=== PATIENT | female | born 1990 | race Caucasian/White ===

== ENCOUNTER → 2022-06-29 15:19 | Outpatient (CLI) | payer BC, SELFPAY ==
--- NOTE | ~2022-06-29 | US_ITS ---
US OB follow up DATE: 06/29/2022 15:50 INDICATION: Size greater than dates TECHNIQUE: Real-time imaging and Doppler analysis COMPARISON: None FINDINGS: . Live single intrauterine gestation, fetus in vertex presentation. heart rate of 124 bpm. Anterior placenta. Subjectively normal amount of amniotic fluid. Amniotic fluid index measures 16.70 cm, within normal limits. Biparietal diameter 7.89 cm; 31 weeks 5 days Head circumference 29.01 cm; 32 weeks 0 days Abdominal circumference 26.34 cm; 30 weeks 3 days Femur length 5.67 cm; 29 weeks 5 days Composite age by Hadlock formula is 31 weeks +/- 2 weeks 1 day with NING of 08/31/2022, compared to 08/17 by LMP. Estimated weight is 1581 +/- 237 g. Estimated weight GP: 43.8% Femur length/BPD 71.86, within normal range of 71.0-87.0 Head circumference/abdominal circumference 1.10, within normal range of 0.9, 671.17 Femur length/abdominal circumference 21.53, within normal range of 20.00-24.00 Femur length/head circumference 19.54, within normal range of 19.30-21.30 IMPRESSION: Vertex presentation Amniotic fluid index measures 16.70 cm, within normal range Estimated weight is 1581 +/- 237 g Reviewed, dictated and finalized at [facility]. Reviewed, dictated and finalized at location [facility]. 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
== END ==
PROVIDERS: PCP Obstetrics & Gynecology Gynecology; Visit Provider Obstetrics & Gynecology Gynecology
DX: O36.63X0 Maternal care for excessive fetal growth, third trimester, not applicable or unspecified (principal); Z3A.00 Weeks of gestation of pregnancy not specified
CPT/HCPCS: 76816

== ENCOUNTER 2022-08-27 14:40 | Outpatient (RCR) | payer BC, SELFPAY ==
--- NOTE | 2022-07-28 15:18 | PC.NURSE ---
Called Dr. Benjamin with ultrasound report. 1 variable deceleration noted at beginning of tracing with none since. December D/C home.
[2022-07-31 17:17] VITALS: BP 114/65; PULSE 79
[2022-08-05 15:15] VITALS: BP 113/61; PULSE 88
[2022-08-18 15:49] VITALS: BP 122/72; PULSE 74
[2022-08-20 14:56] VITALS: BP 119/66; PULSE 93
[2022-08-24 22:23] VITALS: BP 135/71; PULSE 73
--- NOTE | ~2022-08-27 | US_ITS ---
EXAMINATION: US OB follow up w BPP DATE: 07/28/2022 14:49 INDICATION: Variable decelerations. Third trimester. TECHNIQUE: Real-time pelvic ultrasound was performed. COMPARISON: Ultrasound 06/29/2022 FINDINGS: There is a single living fetus in vertex presentation. The placenta is anterior. heart rate is 132 beats per minute (bpm). The amniotic fluid index is 12.1 cm . The following biometric data were obtained: Biparietal diameter (BPD): 8.8 cm; head circumference (HC): 31.5 cm; abdominal circumference (AC): 32 .4 cm; femur length (FL): 6.9 cm. These measurements are concordant. Estimated weight is 2795 g +/- 419 g, which correlates with the 85th percentile when 08/27/22 is used as estimated date of delivery. As single measurements, these parameters are each equal to the following estimated gestational ages: BPD: 35 weeks 5 days. HC: 35 weeks 3 days. AC: 36 weeks 2 days. FL: 35 weeks 3 days. estimated gestational age based solely on measurements from this exam is 35 weeks 5 days +/- 2 weeks 4 days. Biophysical profile performed by the technologist: breathing (30 sec sustained breathing in 30 minutes): 2 out of 2 movement (3 gross body movements in 30 minutes): 2 out of 2 tone (one episode of qtylqgx-vayzbydtz-crmwpyw limb movement): 2 out of 2 Amniotic fluid pocket (2 cm): 2 out of 2 Total score: 8 out of 8 IMPRESSION: 1. Single living fetus in vertex presentation. 2. Estimated weight is 2795 g +/- 419 g, which correlates with the 85th percentile when 3 is used as estimated date of delivery. 3. Biophysical profile 8 out of 8. Reviewed, dictated and finalized at location A. 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 Single living fetus in vertex presentation. 2. Estimated weight is 2795 g +/- 419 g, which correlates with the 85th percentile when 08/27/22 is used as estimated date of delivery. 3. Biophysical profile 8 out of 8.
[2022-08-27 15:23] VITALS: BP 117/67; PULSE 94
== END 2022-09-12 07:45 | disposition home or self-care (01) ==
LOC: ANHOBOP 14:40
PROVIDERS: Visit Provider Obstetrics & Gynecology Gynecology
DX: O26.893 Other specified pregnancy related conditions, third trimester (principal); O98.513 Other viral diseases complicating pregnancy, third trimester; U07.1 COVID-19; Z3A.34 34 weeks gestation of pregnancy; Z3A.35 35 weeks gestation of pregnancy; Z3A.37 37 weeks gestation of pregnancy; Z3A.38 38 weeks gestation of pregnancy
CPT/HCPCS: 59025; 76816; 76819

== ENCOUNTER 2022-08-30 16:01 | Inpatient (IN) | payer BC, SELFPAY ==
[2022-08-30 16:37] VITALS: BP 133/69; PULSE 87
[2022-08-30 16:57] LABS: Basophils Percent Auto 0.4 % (0.2-1.2); Eosinophils Absolute Auto 0.1 K/mm3 (0-0.3); Eosinophils Percent Auto 0.8 % (0-4.4); Hematocrit 35.9 % (37.0-47.0); Hemoglobin 11.9 g/dL (12.0-15.0); Immature Granulocyte Absolute 0.13 K/mm3 (0.00-0.031); Immature Granulocyte Percent A 1.3 % (0-0.5); Lymphocytes Absolute Auto 1.64 K/mm3 (0.9-3.2); Mean Corpuscular HGB Conc 33.1 g/dl (32-36); Mean Corpuscular Hemoglobin 31.2 pg (26-34); Mean Corpuscular Volume 94.2 fl (80-100); Mean Platelet Volume 9.7 fl (7.4-10.4); Monocytes Absolute Auto 0.7 K/mm3 (0.1-0.6); Monocytes Percent Auto 7.1 % (2.6-8.5); Neutrophils Absolute Auto 7.1 K/mm3 (1.3-6.7); Neutrophils Percent Auto 73.4 % (45.5-73.1); Platelet Count Result 233 k/mm3 (150-375); Red Blood Count 3.81 M/mm3 (4.2-5.4); White Blood Count 9.7 K/mm3 (4.5-10.0)
[2022-08-30 17:07] VITALS: BP 124/75; PULSE 88; TEMP 37.2
[2022-08-30 17:10] VITALS: TEMP 37.2; BMI 35.2
--- NOTE | 2022-08-30 17:14 | LDADM ---
This patient, Leida El, was admitted to Labor/Delivery/Recovery 103 on 08/30/22 at 16:01. Plans for labor, pain management and were discussed with patient. Patient/family oriented to hospital policies and general routines including ID bracelet, bed and alarms, visiting hours, pain management, procedures, bathroom and other care routines, personal items, smoking policy, room service/diet and guest tray routines, security routines, and visiting hours. Patient/Family are encouraged to report perceived risks to care and to ask questions if they do not understand what they are told or what they should do. See OBIX for further documentation.
[2022-08-30 17:15] VITALS: BP 127/74; PULSE 82
[2022-08-30 17:30] VITALS: BP 130/88; PULSE 81
[2022-08-30] MEDS: DINOPROSTONE 10 MG VAG INSERT VAGINAL (17:41)
--- NOTE | 2022-08-30 17:57 | WPDOBADMIT ---
Obstetrics - Admit Note Admission Note: record reviewed. No pertinent additions to the history and/or any subsequent changes in the physical findings that are not consistent with the expected course of the were found. Additions to the history and/or subsequent changes in the physical findings follow. None.
[2022-08-31] VITALS (10 sets, daily range): BP systolic 119–124; BP diastolic 71–81; PULSE 71–88; TEMP 36.1–36.6
[2022-08-31] MEDS: miSOPROStol 25 MCG TABLET VAGINAL ×2 (07:16→11:24)
--- NOTE | 2022-08-31 07:38 | PM.OBPNLAB ---
Pain Control Date/time seen: 08/31/22 07:38 Pain control: tolerating well Pelvic Exam Comments: Closed per recent RN exam Contractions Monitor mode: External Contraction frequency: 3 Contraction pattern: Regular Contraction phase: Contraction Contraction intensity: Mild Status status: Category l Assessment and Plan Assessment: induction ongoing Comments: CNM at bedside. Discussed plan of care. Discussed plan of care with patient and her partner. Discussed Cervidil and Cytotec process. Discussed expectations from this point on. Plan to reassess cervix in 4 hours. If cervix remains firm and patient not having regular painful contractions, would consider a 2nd Cytotec. Discussed options for Yeh balloon placement including risks and benefits. Discussed amniotomy risks and benefits at some point. Also discussed options of discharge home with plan for readmission at a later point in time if her cervix makes no change. All questions answered.
--- NOTE | 2022-08-31 16:41 | WPDANESEPP ---
Anes - Eval Pre Procedure Procedure: Labor epidural Date/Time: 08/31/22 16:41 Surgeon: Sourav Preop Diagnosis: Abd pain with contractions Pre Op Diagnosis: IOL Patient Data Age: 32 Gender: F Height: 1.63 m Weight: 93 kg Last Vital Signs Temp 98 F 08/31/22 15:26 Pulse 81 08/31/22 16:20 BP 123/73 08/31/22 16:20 O2 Del Method Room Air 08/30/22 17:10 Allergies Allergy/AdvReac Type Severity Reaction Status Date / Time No Known Allergies Allergy Verified 08/05/22 15:09 Home Medications Medication Instructions Recorded Confirmed Type aspirin 81 mg tablet,delayed 81 mg PO DAILY 08/05/22 08/20/22 History release (Lanny Low Dose Aspirin) cholecalciferol (vitamin D3) 100 100 mcg PO DAILY 08/05/22 08/20/22 History mcg (4,000 unit) capsule levothyroxine 50 mcg tablet 50 mcg PO DAILY 08/05/22 08/30/22 History prenat.vits,lu,bwm-aqle-raijo 1 tablet PO DAILY 08/05/22 08/20/22 History Laboratory Tests 08/30/22 08/30/22 08/30/22 16:34 16:34 16:34 WBC 9.7 K/mm3 K/mm3 (4.5-10.0) RBC 3.81 M/mm3 L M/mm3 (4.2-5.4) Hgb 11.9 g/dL L g/dL (12.0-15.0) Hct 35.9 % L % (37.0-47.0) MCV 94.2 fl fl (80-100) MCH 31.2 pg pg (26-34) MCHC 33.1 g/dl g/dl (32-36) RDW 14.0 % % (11.5-14.5) Plt Count 233 k/mm3 k/mm3 (150-375) MPV 9.7 fl fl (7.4-10.4) Immature Gran % (Auto) 1.3 % H % (0-0.5) Neut % (Auto) 73.4 % H % (45.5-73.1) Lymph % (Auto) 17.0 % L % (18.3-44.2) [place] % (Auto) 7.1 % % (2.6-8.5) Eos % (Auto) 0.8 % % (0-4.4) Baso % (Auto) 0.4 % % (0.2-1.2) Lymph # (Auto) 1.64 K/mm3 K/mm3 (0.9-3.2) [place] # (Auto) 0.7 K/mm3 H K/mm3 (0.1-0.6) Eos # (Auto) 0.1 K/mm3 K/mm3 (0-0.3) Baso # (Auto) 0.0 K/mm3 K/mm3 (0.0-0.1) Abs Immat Gran (auto) 0.13 K/mm3 H K/mm3 (0.00-0.031) Absolute Neuts (auto) 7.1 K/mm3 H K/mm3 (1.3-6.7) Absolute Nucleated RBC 0.0 K/mm3 K/mm3 (0.0-0.012) Nucleated RBC % 0.0 % % (0.0-0.2) RPR Pending Blood Type O Positive Antibody Screen Negative Patient hx anesthesia problems: none Family hx anesthesia problems: none Results Review: All pre-operative results and documents have been reviewed as part of the pre-operative evaluation. [facility] Past Medical History Medical History Hypothyroidism Obesity PCOS (polycystic ovarian syndrome) and not yet delivered Scoliosis Family History Family History Other No pertinent family history Social History Social History Smoking status: Never smoker Second hand tobacco smoke exposure: No Substance use: never Lack of Transportation: No Lack of Food: Never True Current Housing: I Have Housing Concerned About Future Housing: No Difficulty Paying Gas/Electric Bills: No Difficulty Paying for Meds: No Currently Unemployed: No Education: Bachelor's Degree Difficulty w/ Childcare or Family Care: No Spiritual care concerns: No Exam Day of Procedure 08/31/22 16:41 Patient weight: obese Airway: Mallampati scale class II
[2022-08-31 16:55] LABS: Rapid Plasma Reagin Non-Reactive (NonReactive)
--- NOTE | 2022-08-31 17:48 | PM.OBPNLAB ---
Pain Control Date/time seen: 08/31/22 17:48 Pain control: tolerating well Comments: Desires discharge home. Contractions Monitor mode: External Contraction pattern: Regular Contraction phase: Contraction Contraction intensity: Mild Status status: Category l Assessment and Plan Comments: CNM At bedside. Patient feeling occasional cramping. Denies vaginal bleeding or rupture of membranes. Reports good movement. heart rate tracing category 1. Patient desires discharge home and would like to return in a few days for induction. Discussed risks and benefits. Discussed risk of stillbirth at this gestation. Discuss possibility/risk of spontaneous labor, rupture of membranes. Labor precautions reviewed. movement precautions reviewed. Plan to discharge patient home this evening with plans for readmission on the .
--- NOTE | 2022-08-31 17:50 | PM.OBPNLAB ---
Pain Control Date/time seen: 08/31/22 1500 Pain control: tolerating well Comments: feeling occasional cramping Pelvic Exam Dilation (cm): 1 Effacement (%): 50 station: -3 Amniotic membrane status: Intact Comments: Somewhat ballotable. Contractions Monitor mode: External Contraction frequency: 3 Contraction pattern: Regular Contraction phase: Contraction Contraction intensity: Mild Status status: Category l Assessment and Plan Plan: continuous present management Comments: Discussed plan of care. Discussed contraction pattern and heart rate tracing. Would defer amniotomy at this time due to head being somewhat ballotable. Given contraction pattern and consistency of cervix would recommend a Yeh balloon placement. Discussed options for Pitocin augmentation with or without the Yeh balloon. Also discussed possibility of discharge home for return at a later time given no medical complications during . Patient will consider these options. Spouse present and supportive.
--- NOTE | 2022-09-09 09:13 | PM.OBTRLD ---
OB - Triage/Final Diagnosis Visit Information Date of evaluation: 08/31/22 Reason for evaluation: other Comments/Additional reasons for admission: I have assessed the risk for this patient, Leida El, and determined that she would benefit from observation care. She is being discharged home after a failed attempt at induction of labor. Evaluation Laboratory results: Laboratory Tests 08/30/22 08/30/22 08/30/22 16:34 16:34 16:34 WBC 9.7 RBC 3.81 L Hgb 11.9 L Hct 35.9 L MCV 94.2 MCH 31.2 MCHC 33.1 RDW 14.0 Plt Count 233 MPV 9.7 Immature Gran % (Auto) 1.3 H Neut % (Auto) 73.4 H Lymph % (Auto) 17.0 L Victoria % (Auto) 7.1 Eos % (Auto) 0.8 Baso % (Auto) 0.4 Lymph # (Auto) 1.64 Victoria # (Auto) 0.7 H Eos # (Auto) 0.1 Baso # (Auto) 0.0 Abs Immat Gran (auto) 0.13 H Absolute Neuts (auto) 7.1 H Absolute Nucleated RBC 0.0 Nucleated RBC % 0.0 RPR Non-reactive Blood Type O Positive Antibody Screen Negative
== END 2022-08-31 18:10 | disposition home or self-care (01) | DRG 833 ==
PROVIDERS: Admitting Provider Advanced Practice Midwife; Visit Provider Advanced Practice Midwife
DX: O99.283 Endocrine, nutritional and metabolic diseases complicating pregnancy, third trimester (principal); O99.213 Obesity complicating pregnancy, third trimester; E03.9 Hypothyroidism, unspecified; Z3A.39 39 weeks gestation of pregnancy
CPT/HCPCS: 36415; 85025; 86592; 86850; 86900; 86901; A9270

== ENCOUNTER 2022-09-03 16:04 | Inpatient (IN) | payer BC, SELFPAY ==
[2022-09-03] VITALS (16 sets, daily range): BP systolic 117–135; BP diastolic 71–88; PULSE 74–110; RESP 16–18; TEMP 36.8–36.9
--- NOTE | 2022-09-03 16:57 | LDADM ---
This patient, Leida El, was admitted to Labor/Delivery/Recovery 107 on 09/03/22 at 16:04. Plans for labor, pain management and were discussed with patient. Patient/family oriented to hospital policies and general routines including ID bracelet, bed and alarms, visiting hours, pain management, procedures, bathroom and other care routines, personal items, smoking policy, room service/diet and guest tray routines, security routines, and visiting hours. Patient/Family are encouraged to report perceived risks to care and to ask questions if they do not understand what they are told or what they should do. See OBIX for further documentation.
[2022-09-03 16:59] LABS: Basophils Percent Auto 0.4 % (0.2-1.2); Eosinophils Absolute Auto 0.1 K/mm3 (0-0.3); Eosinophils Percent Auto 1.1 % (0-4.4); Hematocrit 36.1 % (37.0-47.0); Immature Granulocyte Absolute 0.16 K/mm3 (0.00-0.031); Immature Granulocyte Percent A 1.6 % (0-0.5); Lymphocytes Absolute Auto 1.81 K/mm3 (0.9-3.2); Lymphocytes Percent Auto 18.2 % (18.3-44.2); Mean Corpuscular HGB Conc 33.2 g/dl (32-36); Mean Corpuscular Hemoglobin 31.2 pg (26-34); Mean Corpuscular Volume 93.8 fl (80-100); Monocytes Absolute Auto 0.8 K/mm3 (0.1-0.6); Monocytes Percent Auto 7.6 % (2.6-8.5); Neutrophils Absolute Auto 7.1 K/mm3 (1.3-6.7); Neutrophils Percent Auto 71.1 % (45.5-73.1); Platelet Count Result 243 k/mm3 (150-375); Red Blood Count 3.85 M/mm3 (4.2-5.4); Red Cell Distribution Width 14.1 % (11.5-14.5)
[2022-09-03] MEDS: miSOPROStol 25 MCG TABLET XX ×2 (17:35→22:55)
--- NOTE | 2022-09-03 21:23 | WPDANESEPP ---
Anes - Eval Pre Procedure Procedure: Labor epidural Date/Time: 09/03/22 21:23 Surgeon: Sourav Preop Diagnosis: Abd pain with contractions Pre Op Diagnosis: IOL Patient Data Age: 32 Gender: F Height: Weight: Last Vital Signs Temp 98.5 F 09/03/22 16:45 Pulse 83 09/03/22 21:00 BP 117/73 09/03/22 21:00 Allergies Allergy/AdvReac Type Severity Reaction Status Date / Time No Known Allergies Allergy Verified 08/05/22 15:09 Home Medications Medication Instructions Recorded Confirmed Type aspirin 81 mg tablet,delayed 81 mg PO DAILY 08/05/22 09/03/22 History release (Lanny Low Dose Aspirin) cholecalciferol (vitamin D3) 100 100 mcg PO DAILY 08/05/22 09/03/22 History mcg (4,000 unit) capsule levothyroxine 50 mcg tablet 50 mcg PO DAILY 08/05/22 09/03/22 History prenat.vits,lu,qll-sjgz-eqbkx 1 tablet PO DAILY 08/05/22 09/03/22 History Laboratory Tests 09/03/22 09/03/22 09/03/22 16:39 16:39 16:39 WBC 10.0 K/mm3 K/mm3 (4.5-10.0) RBC 3.85 M/mm3 L M/mm3 (4.2-5.4) Hgb 12.0 g/dL g/dL (12.0-15.0) Hct 36.1 % L % (37.0-47.0) MCV 93.8 fl fl (80-100) MCH 31.2 pg pg (26-34) MCHC 33.2 g/dl g/dl (32-36) RDW 14.1 % % (11.5-14.5) Plt Count 243 k/mm3 k/mm3 (150-375) MPV 10.0 fl fl (7.4-10.4) Immature Gran % (Auto) 1.6 % H % (0-0.5) Neut % (Auto) 71.1 % % (45.5-73.1) Lymph % (Auto) 18.2 % L % (18.3-44.2) [place] % (Auto) 7.6 % % (2.6-8.5) Eos % (Auto) 1.1 % % (0-4.4) Baso % (Auto) 0.4 % % (0.2-1.2) Lymph # (Auto) 1.81 K/mm3 K/mm3 (0.9-3.2) [place] # (Auto) 0.8 K/mm3 H K/mm3 (0.1-0.6) Eos # (Auto) 0.1 K/mm3 K/mm3 (0-0.3) Baso # (Auto) 0.0 K/mm3 K/mm3 (0.0-0.1) Abs Immat Gran (auto) 0.16 K/mm3 H K/mm3 (0.00-0.031) Absolute Neuts (auto) 7.1 K/mm3 H K/mm3 (1.3-6.7) Absolute Nucleated RBC 0.0 K/mm3 K/mm3 (0.0-0.012) Nucleated RBC % 0.0 % % (0.0-0.2) RPR Pending Blood Type O Positive Antibody Screen Negative Patient hx anesthesia problems: none Family hx anesthesia problems: none Results Review: All pre-operative results and documents have been reviewed as part of the pre-operative evaluation. [facility] Past Medical History Medical History Hypothyroidism Obesity PCOS (polycystic ovarian syndrome) and not yet delivered Scoliosis Family History Family History Other No pertinent family history Social History Social History Smoking status: Never smoker Second hand tobacco smoke exposure: No Substance use: never Lack of Transportation: No Lack of Food: Never True Current Housing: I Have Housing Concerned About Future Housing: No Difficulty Paying Gas/Electric Bills: No Difficulty Paying for Meds: No Currently Unemployed: No Education: Bachelor's Degree Difficulty w/ Childcare or Family Care: No Spiritual care concerns: No Exam Day of Procedure 09/03/22 21:23 Patient weight: obese Airway: Mallampati scale class II
[2022-09-04] VITALS (241 sets, daily range): BP systolic 68–139; BP diastolic 41–96; PULSE 64–208; RESP 18; TEMP 36.4–37.2; O2SAT 96–100; BMI 35.2
[2022-09-04] MEDS: LACTATED RINGERS 1,000 ML 125 ML IV CONT ×3 (03:15→20:13)
[2022-09-04] MEDS: OXYTOCIN 30 UNITS/NS 500 ML 30 UNITS/500 ML BAG 6 UNITS IV CONT (03:15)
--- NOTE | 2022-09-04 07:20 | PM.OBPNLAB ---
Pain Control Date/time seen: 09/04/22 07:15 Pain control: tolerating well Comments: Feeling irregular cramping/ctx Pelvic Exam Dilation (cm): 2 Effacement (%): 60 station: -3 Amniotic membrane status: Intact Comments: head well applied to cervix Contractions Monitor mode: External Contraction frequency: 4 (1.5-4.5) Contraction duration: 60 (60-80) Contraction pattern: Irregular Contraction phase: Contraction Contraction intensity: Mild Status status: Category l Assessment and Plan Pitocin rate (mU/min): 8 (Decreased to 4ml/hr after AROM) Assessment: induction ongoing Comments: CNM at bedside. Discussed plan of care. Given change in exam would recommend amniotomy as next steps. Also discussed possibility of placement of intrauterine pressure catheter at some point. Patient is agreeable. Amniotomy performed and small amount of clear fluid returned. Pitocin decreased to 4 mL an hour. Will defer placement of IUPC at this time since cervical change is present. Anticipate vaginal .
--- NOTE | 2022-09-04 12:20 | PM.OBPNLAB ---
Pain Control Date/time seen: 09/04/22 12:15 Pain control: tolerating well and epidural Pelvic Exam Comments: Exam deferred at this time Contractions Monitor mode: Internal Contraction pattern: Regular Status status: Category l Assessment and Plan Assessment: induction ongoing Comments: CNM at bedside. Discussed plan of care with patient and her family. Contraction pattern appears adequate and tracing category 1. cervical exam deferred. Recommend frequent repositioning to allow for optimal descent. Anticipate vaginal
--- NOTE | 2022-09-04 12:22 | PM.OBTRLD ---
OB - Triage/Final Diagnosis Visit Information Date of evaluation: 08/31/22 Reason for evaluation: other (Lack of adequate cervical change, failed IOL. Cat 1 FHT tracing. ) Comments/Additional reasons for admission: I have assessed the risk for this patient, Leida El, and determined that she would benefit from observation care. Evaluation Laboratory results: Laboratory Tests 09/03/22 09/03/22 16:39 16:39 WBC 10.0 RBC 3.85 L Hgb 12.0 Hct 36.1 L MCV 93.8 MCH 31.2 MCHC 33.2 RDW 14.1 Plt Count 243 MPV 10.0 Immature Gran % (Auto) 1.6 H Neut % (Auto) 71.1 Lymph % (Auto) 18.2 L [place] % (Auto) 7.6 Eos % (Auto) 1.1 Baso % (Auto) 0.4 Lymph # (Auto) 1.81 [place] # (Auto) 0.8 H Eos # (Auto) 0.1 Baso # (Auto) 0.0 Abs Immat Gran (auto) 0.16 H Absolute Neuts (auto) 7.1 H Absolute Nucleated RBC 0.0 Nucleated RBC % 0.0 Blood Type O Positive Antibody Screen Negative Vital signs: Vital Signs - 24 hr 09/03/22 16:29 09/03/22 16:30 09/03/22 16:45 Temperature 98.5 F Pulse Rate 97 94 110 H Respiratory Rate Blood Pressure 128/79 130/79 135/88 Pulse Oximetry Oxygen Delivery 09/03/22 17:00 09/03/22 17:15 09/03/22 17:30 Temperature Pulse Rate 84 79 82 Respiratory Rate Blood Pressure 118/73 117/72 128/76 Pulse Oximetry Oxygen Delivery 09/03/22 18:00 09/03/22 18:30 09/03/22 19:00 Temperature 98.4 F Pulse Rate 87 74 84 Respiratory Rate 18 Blood Pressure 132/82 129/73 131/73 Pulse Oximetry Oxygen Delivery 09/03/22 19:30 09/03/22 20:00 09/03/22 20:30 Temperature Pulse Rate 80 77 78 Respiratory Rate Blood Pressure 122/71 135/79 123/73 Pulse Oximetry Oxygen Delivery 09/03/22 21:00 09/03/22 21:30 09/03/22 22:56 Temperature Pulse Rate 83 86 74 Respiratory Rate Blood Pressure 117/73 120/79 134/78 Pulse Oximetry Oxygen Delivery 09/04/22 00:03 09/04/22 00:35 09/04/22 01:00 Temperature Pulse Rate 85 72 73 Respiratory Rate Blood Pressure 121/58 L 122/73 116/74 Pulse Oximetry Oxygen Delivery 09/04/22 01:30 09/04/22 02:00 09/04/22 02:30 Temperature Pulse Rate 75 83 78 Respiratory Rate Blood Pressure 124/80 100/55 L 103/48 L Pulse Oximetry Oxygen Delivery 09/04/22 02:32 09/04/22 03:04 09/04/22 03:19 Temperature Pulse Rate 74 64 81 Respiratory Rate Blood Pressure 106/53 L 117/78 127/74 Pulse Oximetry Oxygen Delivery 09/04/22 03:30 09/04/22 03:45 09/04/22 04:00 Temperature Pulse Rate 71 69 76 Respiratory Rate Blood Pressure 127/76 119/80 122/69 Pulse Oximetry Oxygen Delivery 09/04/22 04:15 09/04/22 04:30 09/04/22 04:45 Temperature Pulse Rate 80 79 78 Respiratory Rate Blood Pressure 119/79 127/75 121/68 Pulse Oximetry Oxygen Delivery 09/04/22 05:00 09/04/22 05:15 09/04/22 05:30 Temperature Pulse Rate 76 75 74 Respiratory Rate Blood Pressure 108/53 L 105/59 L 123/75 Pulse Oximetry Oxygen Delivery 09/04/22 05:45 09/03/22 23:00 09/04/22 03:00 Temperature 98.2 F 97.5 F L Pulse Rate 90 Respiratory Rate 16 18 Blood Pressure 118/77 Pulse Oximetry Oxygen Delivery 09/04/22 06:00 09/04/22 06:15 09/04/22 06:30 Temperature Pulse Rate 91 86 79 Respiratory Rate Blood Pressure 115/70 125/78 104/49 L Pulse Oximetry Oxygen Delivery 09/04/22 06:32 09/04/22 06:45 09/04/22 07:00 Temperature Pulse Rate 80 75 77 Respiratory Rate Blood Pressure 99/52 L 97/50 L 116/74 Pulse Oximetry Oxygen Delivery 09/04/22 07:15 09/04/22 07:30 09/04/22 07:45 Temperature Pulse Rate 86 79 79 Respiratory Rate Blood Pressure 130/79 120/76 119/74 Pulse Oximetry Oxygen Delivery 09/04/22 08:00 09/04/22 08:15 09/04/22 08:30 Temperature Pulse Rate 87 76 84 Respiratory Rate Blood Pressure 121/75 119/78 120/74 Pulse Oximetry Oxy
[2022-09-04 14:20] LABS: Rapid Plasma Reagin Non-Reactive (NonReactive)
--- NOTE | 2022-09-04 17:33 | PM.OBPNLAB ---
Pain Control Date/time seen: 09/04/22 17:00 Pain control: tolerating well and epidural Pelvic Exam Dilation (cm): 4 Effacement (%): 90 station: -2 Amniotic membrane status: Intact Contractions Monitor mode: Internal Contraction frequency: 4 (1.5-6) Contraction duration: 90 (70-90) Contraction pattern: Irregular Contraction phase: Contraction Status status: Category l Assessment and Plan Assessment: active labor Plan: continuous present management Comments: CNM at bedside. Discussed plan of care. Recommend far left lateral and far right lateral positions with top leg on peanut ball to allow for rotation and descent. Anticipate vaginal .
--- NOTE | 2022-09-04 20:11 | PM.OBPNLAB ---
Pain Control Date/time seen: 09/04/221952 Pain control: tolerating well and epidural Pelvic Exam Dilation (cm): 5 Effacement (%): 90 station: -2 Amniotic membrane status: Intact Contractions Monitor mode: Internal Contraction frequency: 4 (1.5-4.5) Contraction duration: 60 (60-90) Contraction pattern: Irregular Contraction phase: Contraction Status status: Category ll Comments: Reassured by moderate variability Assessment and Plan Assessment: induction ongoing Plan: continuous present management Comments: Pt assisted to hands and knees. Recommend frequent repositioning.
[2022-09-04] MEDS: CALCIUM CARBONATE (TUMS) 500 MG (200 MG ELEMENTAL) 400 MG PO (22:40)
[2022-09-04] MEDS: diphenhydrAMINE HCl INJ 50 MG/ML VIAL 25 MG IV PUSH (22:41)
[2022-09-04] MEDS: ACETAMINOPHEN 500 MG TABLET 1000 MG PO (22:57)
[2022-09-05] VITALS (85 sets, daily range): BP systolic 94–137; BP diastolic 40–109; PULSE 67–222; RESP 16–18; TEMP 36.7–37.6; O2SAT 94–100
--- NOTE | 2022-09-05 03:59 | PM.OBPNLAB ---
Pain Control Date/time seen: 09/05/22 03:45 Pain control: tolerating well and epidural Pelvic Exam Dilation (cm): 6 Effacement (%): 90 (some edema to L side of cervix) station: -1 Amniotic membrane status: Ruptured Contractions Monitor mode: Internal Contraction pattern: Irregular Contraction phase: Contraction Contraction intensity: Mild Status status: Category ll Comments: Reassured by moderate variability and accelerations Assessment and Plan Assessment: induction ongoing Comments: s/p pitocin break. Ctx not adequate at this time. SVE slightly changed from previous CNM exam. Caput present. FHT tracing reassuring. VSS, afebrile. Was called 6cm at prior exam by RN but has not been adequate consistently since that time. Plan to increase pitocin as needed to achieve adequate contractions. Family present, supportive, and participated in discussion about plan of care.
[2022-09-05] MEDS: FAMOTIDINE 20 MG/2 ML VIAL IV PUSH (04:17)
[2022-09-05] MEDS: LACTATED RINGERS 1,000 ML 125 ML IV CONT (05:22)
[2022-09-05] MEDS: AMPICILLIN 2 GM/NS 100 ML 2 GM/100 ML BAG IVPB (06:18)
[2022-09-05] MEDS: OXYTOCIN 30 UNITS/NS 500 ML 30 UNITS/500 ML BAG 6 UNITS IV CONT (07:28)
[2022-09-05] MEDS: OXYTOCIN 30 UNITS/NS 500 ML 30 UNITS/500 ML BAG 999 UNITS IV CONT (14:37)
[2022-09-05] MEDS: METHYLERGONOVINE MALEATE 0.2 MG/ML VIAL IM (14:52)
[2022-09-05] MEDS: TRANEXAMIC ACID 1,000MG/ISO100 1,000 MG/100 ML BAG 200 MG IVPB (15:00)
[2022-09-05] MEDS: fentaNYL CITRATE INJ (*CRX) 100 MCG/2 ML VIAL 50 MCG IV PUSH (15:04)
[2022-09-05] MEDS: miSOPROStol 200 MCG TABLET 600 MCG (15:07)
[2022-09-05] MEDS: miSOPROStol 200 MCG TABLET (15:07)
[2022-09-05] MEDS: OXYTOCIN 30 UNITS/NS 500 ML 30 UNITS/500 ML BAG 125 UNITS IV CONT (15:08)
--- NOTE | 2022-09-05 15:39 | PM.OBPRVD ---
OB - Delivery Note Procedure Delivery date: 09/05/22 Procedure: Events: Other (Covid infection in 3rd trimester, IVF ) Induction method: Per Misoprostol Protocol and Per Pitocin Protocol Delivery augmentation: Rupture of Membranes and Pitocin Delivery monitor: External FHT, External Uterine and Internal FHT Route of delivery: Episiotomy description: None Laceration Description: Perineal - 2nd Degree Delivery repair: vicryl Specimen: Yes Quantitative Blood Loss (ml): 1,139 Anesthesia type: Epidural Disposition: Floor Complications: Hemorrhage Narrative: Pt presented for IOL. she progressed to complete dilatation and began pushing with contractions. There Was very slow descent of the head as fetus was thought to be occiput posterior. However after frequent position changes and maternal expulsive effort the head came to crown. The head was delivered in the ROP position and there was excellent restitution. The anterior and posterior shoulders delivered with gentle traction followed by the remainder of the . The was placed on the maternal abdomen and dried and stimulated by the nursery team. After 1 minute of life the cord was doubly clamped and cut. Cord blood and cord gases were obtained. After 20 minutes the vaginal bleeding became more brisk. However, there was no descent of the umbilical cord and the placenta remained in place despite maternal expulsive efforts, uterine massage, and gentle traction. The placenta was manually removed, examined and thought to be intact. Uterine bleeding continued to be brisk. Methergine and TXA were administered, followed by rectal Cytotec. After several minutes uterine tone improved and bleeding slowed. A second-degree vaginal laceration was repaired in the usual manner. All delivery counts were correct. vital signs stable. [place] [facility] Date of : 09/05/22 Time of : 14:26 Weeks of gestation at delivery: 40 Infant gender: Female Weight (pounds): 8 Weight (ounces): 5 presentation: vertex position: Right Occiput Posterior Placenta delivery description: Manual Removal Cord Vessel Description: 3 Vessels, Clamped/Cut and Delayed Cord Clamping score one minute: 7 score five minutes: 9
--- NOTE | 2022-09-05 15:50 | PM.OBDSVD ---
DS: Admitting Diagnosis Discharge Date 09/07/21 Admitting Diagnosis 32 y.o. at 39 weeks gestation IVF IOL Hypothyroidism Covid infection in the 3rd trimester DS: Discharge Diagnosis Discharge Diagnosis (1) Mother currently breast-feeding: Code(s): Z39.1 - Encounter for care and examination of lactating mother Status: Acute (2) (normal spontaneous vaginal delivery): Code(s): O80 - Encounter for full-term uncomplicated delivery Status: Acute (3) Hypothyroidism: Code(s): E03.9 - Hypothyroidism, unspecified Status: Acute (4) conceived through in vitro fertilization: Code(s): O09.819 - Supervision of resulting from assisted reproductive technology, unspecified trimester Status: Acute (5) hemorrhage: Code(s): O72.1 - Other immediate hemorrhage Status: Acute OB - DS: Summary Hospital Course Hospital Course: Uncomplicated OB Procedures : Ultrasound OB Procedures Intrapartum: Spontaneous Vag Delivery OB Procedures: : None Peripartum Data Infant Delivery Method: Natural Vaginal Laceration Description: Perineal - 2nd Degree Episiotomy description: None complications: retained placenta (manual removal in the delivery room.) Status at Discharge Overall status at discharge: patient is progressing back to baseline Time Spent with Patient Time attestation: Total time spent providing and/or coordinating discharge services: Exam Narrative: Alert and oriented. Mood is pleasant and cooperative. Urinating without difficulty. Denies passing any large clots. Perineum with minimal edema. Fundus firm and below umbilicus. Const: General: cooperative, healthy appearing, no acute distress and alert Orientation/consciousness: patient oriented x3 Limitations: no limitations Resp: Effort & Inspection: normal respiratory effort Auscultation: clear to auscultation bilaterally Cardio: Rate: regular rate GI: Inspection: normal to inspection Neuro: General: patient oriented x3 Extrem: General: normal to inspection Psych: Appearance: grossly normal Mental Status: mental status grossly normal Affect: normal affect Thought process: Normal thought process present DS: Data Data Completed and Pending Pending studies at discharge: Pending at discharge 09/05/22 14:54 Surgical [PTH] Routine Discharge Plan Discharge Attending physician on discharge: Catherine Benjamin Discharging Clinician: Jazmine Kinney Anticipated Discharge Date/Time: 09/07/22 11:00 Patient Disposition: Home, Self-Care Activity: may shower Diet: as tolerated and regular Discharge Instructions: Continue taking your vitamin and any other supplements as previously directed (Examples: Iron, Vitamin D). You may take Tylenol 1000mg over the counter every 6 hours as needed for pain. Do not exceed 4000mg of Tylenol daily. You may continue using tucks pads and dermoplast spray if needed for a few more days. Patient Instructions: Antibiotic Form Stand Alone Forms: General Discharge Information Follow-up/Referrals: Jazmine Kinney CNM [Certified Nurse Space Systems Operations Superintendent] - (6 weeks post ) Discharge Medications: New polysaccharide iron complex 150 mg iron Capsule 150 mg PO BIDWM 60 Days Qty: 120 0RF docusate sodium 100 mg Capsule 100 mg PO BID PRN (Reason: Constipation) 30 Days Qty: 60 0RF ibuprofen 600 mg Tablet 600 mg PO Q6H PRN (Reason: Cramping) 14 Days Qty: 30 0RF Continued levothyroxine 50 mcg Tablet 50 mcg PO DAILY prenat.vits,lu,css-qjma-aphzl Tablet 1 tablet PO DAILY Discontinued aspirin [Lanny Low Dose Aspirin] 81 mg Tablet,Delayed Release (Dr/Ec) 81 mg PO DAILY cholecalciferol (vitamin D3) 100 mcg (4,000 unit) Capsule 100 mcg PO DAILY Date of admission: 09/03/22 16:04 Primary Care Provider: PHYSICIAN,SPA DIRECTOR/FINANCE Ad
[2022-09-05] MEDS: ceFAZolin 2 GM/D5W 50 ML 2 GM/50 ML BAG IVPB (15:52)
[2022-09-05] MEDS: WITCH HAZEL 40 PADS 1 PAD TOPICAL (16:44)
[2022-09-05] MEDS: IBUPROFEN 600 MG TABLET PO (16:44)
[2022-09-05] MEDS: BENZOCAINE 20% AER SPR (*SP) 56 GM CAN 1 SPRAY TOPICAL (16:44)
--- NOTE | 2022-09-05 17:42 | OBPPTRN ---
Patient transferred to post room #279 via wheelchair. Support person present. Oriented to unit, room, information board, rooming in, admission packet and security measures. Patient verbalizes understanding.
[2022-09-06 04:31] VITALS: BP 111/64; PULSE 90; RESP 18; TEMP 37.3; O2SAT 99
[2022-09-06] MEDS: LEVOTHYROXINE SODIUM 50 MCG TABLET PO (06:36)
[2022-09-06 07:03] LABS: Hematocrit 27.5 % (37.0-47.0); Hemoglobin 9.1 g/dL (12.0-15.0)
[2022-09-06 07:45] VITALS: BP 119/71; PULSE 88; RESP 16; TEMP 36.9; O2SAT 98
[2022-09-06] MEDS: POLYSACCHARIDE IRON COMPLEX 150 MG CAPSULE PO ×2 (07:51→16:03)
[2022-09-06] MEDS: MULTIVIT/MIN/PREN/FOL AC/IRON TABLET 1 TAB PO (07:52)
[2022-09-06] MEDS: IBUPROFEN 600 MG TABLET PO ×2 (07:52→16:03)
[2022-09-06] MEDS: DOCUSATE SODIUM 100 MG CAPSULE PO ×2 (07:52→16:03)
--- NOTE | 2022-09-06 08:42 | PM.OBPNVD ---
OB - PN: Subj Subjective Date/time seen: 09/06/22 08:42 Patient comments: no complaints, pain well controlled and other (ambulating without symptoms; bleeding typical for pp) baby status: doing well OB - PN: Obj Data Labs 09/06/22 04:18 Labs: Laboratory Results - last 24 hr 09/06/22 04:18 Hgb 9.1 L Hct 27.5 L OB - PN A/P Plan day: 1 Plan: routine care Time Spent With Patient Time: Total time spent is greater than 50% in coordination of care (as documented) at patient's floor/unit and/or counseling patient: Exam : Bimanual exam- vagina & uterus: other (Uterus firm, nt @U)
[2022-09-06 11:35] VITALS: BP 110/64; PULSE 82; RESP 16; TEMP 36.5; O2SAT 99
--- NOTE | 2022-09-06 12:46 | WPDANLDPN2 ---
Anes-Prog Note L&D Date/Time: 09/06/22 12:46 Neuro status: Neuro function grossly intact. Cardiovascular status: normal Respiratory status: normal Airway patency: baseline Mental status: baseline Post-Op hydration status: normal Vital Signs: Last Vital Signs Temp 36.5 C 09/06/22 11:35 Pulse 82 09/06/22 11:35 Resp 16 09/06/22 11:35 BP 110/64 09/06/22 11:35 Pulse Ox 99 09/06/22 11:35 O2 Del Method Room Air 09/06/22 07:45 Pain score (VAS): 08/25 I/O: Intake & Output 09/05/22 09/06/22 09/06/22 23:59 07:59 15:59 Output Total 400 Balance -400 Post-procedural complaints: none Patient feedback: Patient satisfied with anesthetic care.
[2022-09-06 19:45] VITALS: BP 122/65; PULSE 85; RESP 18; TEMP 36.2
[2022-09-07 07:20] VITALS: BP 121/72; PULSE 77; RESP 16; TEMP 37.1; O2SAT 100
[2022-09-07] MEDS: POLYSACCHARIDE IRON COMPLEX 150 MG CAPSULE PO (07:49)
[2022-09-07] MEDS: LEVOTHYROXINE SODIUM 50 MCG TABLET PO (07:49)
[2022-09-07] MEDS: MULTIVIT/MIN/PREN/FOL AC/IRON TABLET 1 TAB PO (07:49)
--- NOTE | 2022-09-07 07:49 | P.PNOB_ITS ---
OB - PN: Subj Subjective Date/time seen: 09/07/22 07:40 Patient comments: no complaints and pain well controlled baby status: doing well and other [place] feeding status: pumping and bottle feeding OB - PN: Obj Data Labs 09/06/22 04:18 OB - PN A/P Plan day: 2 Plan: discharge home Time Spent With Patient Time: Total time spent is greater than 50% in coordination of care (as documented) at patient's floor/unit and/or counseling patient: Review of Systems Review of Systems: All systems reviewed & are unremarkable except as noted in HPI and below Exam Narrative: Alert and oriented. Mood is pleasant and cooperative. Urinating without difficulty. Denies passing any large clots. Perineum with minimal edema. Fundus firm and below umbilicus. Const: General: cooperative, healthy appearing, no acute distress and alert Orientation/consciousness: patient oriented x3 Limitations: no limitations Resp: Effort & Inspection: normal respiratory effort Auscultation: clear to auscultation bilaterally Cardio: Rate: regular rate GI: Inspection: normal to inspection Neuro: General: patient oriented x3 Extrem: General: normal to inspection Psych: Appearance: grossly normal Mental Status: mental status grossly normal Affect: normal affect Thought process: Normal thought process present
[2022-09-07] MEDS: DOCUSATE SODIUM 100 MG CAPSULE PO (07:50)
[2022-09-07] MEDS: LANOLIN (LANSINOH) 7.5 GM CREAM 1 APPLIC TOPICAL (07:51)
[2022-09-07] MEDS: IBUPROFEN 600 MG TABLET PO (07:52)
--- NOTE | 2022-09-07 11:39 | PC.NURSE ---
Patient viewed the discharge video Mother & Baby Care, The First Two Weeks . Patient was given the opportunity and encouraged to ask questions. Patient verbalized understanding of information shared and has been given the mother/baby guide for home reference.
--- NOTE | 2022-09-07 14:48 | PC.NURSE ---
[id number] Introductions were made, then consulted with patient to assess needs related to . Mother led the conversation with her?plans to feed?her infant and the?experience so far. Resources provided for inpatient and outpatient services with the mom/baby guide. Mother voiced understanding of information, had just finish feeding her the bottle and will call if there is a request for assistance. Reported to primary RN. [phone] Mother works well with her with encouragement and education. Encouraged understanding of the benefits of skin to skin (demonstrating unwrapping infant and placing upright on her chest), stimulating with massage touch, changing positions to encourage wakefulness, how to watch for early feeding cues, responsive feeding, feeding on demand (aiming for 8-12 times in 24 hours, about every 2-3 hours), milk production, building/maintaining a milk supply, duration of feeding, signs of adequate intake/output and how to record on the feeding sheet. Reviewed positioning and ear, shoulder, hip alignment, supporting the breast to facilitate a deep latch, asymmetrical latch (off-center), leading with the chin with a big, open, wide gape and body close to mother. Infant was attempted to the breast with and without a nipple shield. With a nipple shield infant opens wide but bends the nipple shield and chews on it. Infant opens wide to latch without the nipple shield, however, even with nipple stimulation the nipple remains flat and can not grasp and pull the breast into her mouth. At times would open wide, then hold nipple area in mouth. Nipple care reviewed with optimal latch and good positioning. Infant presented with late feeding cues and was paced bottle fed. Mother was encouraged to consistently pump 8-12 times in 24 hours with 1-2 times at night. We discussed her medical history (PCOS, hypothyroidsm and use of fertility medication), delivery blood loss and how that might delay the lactogenesis II. Reviewed using the pie demonstration of intake and output. Educated mother on hand expression, stimulating nipple, talking and massage touching . Mother listened well and much encouragement was given to hold her infant, move her infant and support her breast to facilitate an optimal latch. Reviewed good handwashing when or touching the breast/nipples to prevent infection. Resources used for learning were used with the tool, the mom and baby guide. Mother voiced understanding of information and availability of the mom/baby guide as a resource.
[2022-09-08 14:17] VITALS: BP 124/77; PULSE 85; RESP 16; TEMP 37.5; O2SAT 99
== END 2022-09-07 13:19 | disposition home or self-care (01) | DRG 807 ==
LOC: ANHLDR 09-05 15:56 → ANHOB2 09-07 07:51 → ANHLDR 09-08 11:21 → ANHOB2 09-08 11:21
PROVIDERS: Admitting Provider Advanced Practice Midwife; Visit Provider Advanced Practice Midwife
DX: O99.284 Endocrine, nutritional and metabolic diseases complicating childbirth (principal); Z37.0 Single live birth; Z3A.40 40 weeks gestation of pregnancy; E03.9 Hypothyroidism, unspecified; O36.8330 Maternal care for abnormalities of the fetal heart rate or rhythm, third trimester, not applicable or unspecified; O70.1 Second degree perineal laceration during delivery; O72.1 Other immediate postpartum hemorrhage
CPT/HCPCS: 36415; 85014; 85018; 85025; 86592; 86850; 86900; 86901; 88307; A9270; J0131; J0290; J0690; J1200; J2210; J2590; J2795; J3010; J7120

== ENCOUNTER 2023-06-03 08:58 | Emergency (ER) | payer BC, SELFPAY ==
[2023-06-03 09:13] VITALS: BP 140/78; PULSE 79; RESP 18; TEMP 36.4; O2SAT 100
[2023-06-03 09:34] LABS: Basophils Absolute Auto 0.1 K/mm3 (0.0-0.1); Basophils Percent Auto 0.4 % (0.2-1.2); Eosinophils Absolute Auto 0.1 K/mm3 (0-0.3); Eosinophils Percent Auto 0.6 % (0-4.4); Hematocrit 41.8 % (37.0-47.0); Hemoglobin 13.5 g/dL (12.0-15.0); Immature Granulocyte Absolute 0.05 K/mm3 (0.00-0.031); Immature Granulocyte Percent A 0.4 % (0-0.5); Lymphocytes Absolute Auto 1.49 K/mm3 (0.9-3.2); Lymphocytes Percent Auto 12.2 % (18.3-44.2); Mean Corpuscular HGB Conc 32.3 g/dl (32-36); Mean Corpuscular Hemoglobin 30.1 pg (26-34); Mean Corpuscular Volume 93.3 fl (80-100); Mean Platelet Volume 9.2 fl (7.4-10.4); Monocytes Absolute Auto 0.6 K/mm3 (0.1-0.6); Monocytes Percent Auto 4.9 % (2.6-8.5); Neutrophils Percent Auto 81.5 % (45.5-73.1); Platelet Count Result 292 k/mm3 (150-375); Red Blood Count 4.48 M/mm3 (4.2-5.4); Red Cell Distribution Width 12.2 % (11.5-14.5); White Blood Count 12.2 K/mm3 (4.5-10.0)
[2023-06-03 10:02] LABS: Beta HCG Quantitative < 2.39 mIU/ML
[2023-06-03 11:34] VITALS: BP 134/78; BP 136/72; BP 139/75; PULSE 72; PULSE 76; PULSE 78
--- NOTE | 2023-06-03 12:40 | ED.PREGNANCY ---
HPI - General Chief complaint: Vaginal Bleeding Stated complaint: Vaginal bleeding Time Seen by Provider: 06/03/23 10:52 Source: patient Mode of arrival: ambulatory Limitations: no limitations History of Present Illness HPI Narrative: Patient is a 32 y/o female who presents to the ED with c/o vaginal bleeding. Patient reports she is 9 months and just recently quit breast-feeding. She started a menstrual cycle last , which was mild at first. The bleeding became heavier last night and today. She notes she is saturating through super tampons within 1 hour. She has not tried contacting her FREIGHT ENGINEER. Patient does report lower abdominal cramping, denies fevers, nausea, vomiting, dysuria, hematuria. Denies dizziness, lightheaded. Related Data Home Medications Medication Instructions Recorded Confirmed levothyroxine 50 mcg tablet 50 mcg PO DAILY 08/05/22 09/03/22 prenat.vits,lu,trg-oweg-yhhwc 1 tablet PO DAILY 08/05/22 09/03/22 Allergies Allergy/AdvReac Type Severity Reaction Status Date / Time No Known Allergies Allergy Verified 06/03/23 11:10 Review of Systems Review of Systems: CONSTITUTIONAL: Denies fever, chills, or sweats. CARDIOVASCULAR: Denies chest pain. RESPIRATORY: Denies dyspnea. GASTROINTESTINAL: See HPI. GENITOURINARY: See HPI. NEUROLOGIC: See HPI. All systems reviewed & are unremarkable except as noted in HPI and below PMFSH Past Medical History Medical History Hypothyroidism Obesity PCOS (polycystic ovarian syndrome) and not yet delivered Scoliosis Family History Family History Other No pertinent family history Social History Social History Smoking status: Never smoker Second hand tobacco smoke exposure: No Substance use: never Lack of Transportation: No Lack of Food: Never True Current Housing: I Have Housing Concerned About Future Housing: No Difficulty Paying Gas/Electric Bills: No Difficulty Paying for Meds: No Currently Unemployed: No Education: Bachelor's Degree Difficulty w/ Childcare or Family Care: No Spiritual care concerns: No Exam Narrative: GENERAL: Well appearing, well-nourished, non-toxic, in no acute distress. HEAD: Normocephalic, atraumatic. NECK: Supple. No adenopathy, no masses. RESPIRATORY: Airway patent, respirations nonlabored. Clear to auscultation bilaterally, no rales, rhonchi, wheezing. CARDIOVASCULAR: Regular rate and rhythm without murmurs, rubs, or gallops. Radial pulses 2+ and equal bilaterally. ABDOMINAL: Soft, no significant tenderness throughout abdomen, nondistended, no hepatosplenomegaly. Normoactive BS. PELVIC: Normal external genitalia. Mild amount of dark red bleeding in vaginal vault. No significant clots. Cervix appears normal. No signs of hemorrhage or pooling of fluid. MUSCULOSKELETAL: Moves all extremities. Strength/ROM intact without gross deformities. SKIN: Warm, dry, normal color. No rashes. NEURO: A&O X3. Speech clear. Cranial nerves II-XII grossly intact. Steady gait. No ataxic movements. PSYCHIATRIC: Appropriate mood and affect. Normal interaction. Course Vital Signs Vital signs: Vital Signs Temperature 97.5 F L 06/03/23 09:13 Pulse Rate 79 06/03/23 09:13 Respiratory Rate 18 06/03/23 09:13 Blood Pressure 140/78 06/03/23 09:13 Pulse Oximetry 100 06/03/23 09:13 Oxygen Delivery Room Air 06/03/23 09:13 Temperature 97.5 F L 06/03/23 09:13 Pulse Rate 78 06/03/23 11:34 Respiratory Rate 18 06/03/23 09:13 Blood Pressure 134/78 06/03/23 11:34 Pulse Oximetry 100 06/03/23 09:13 Oxygen Delivery Room Air 06/03/23 09:13 MDM - OB/Uterine Contractions MDM Narrative Medical decision making narrative: Patient presented to ED with heavy vagina
[2023-06-03 12:48] LABS: Appearance Urine Cloudy (Clear); Bacteria Urine None Seen /hpf; Bilirubin Urine Negative (Negative); Blood Urine 3+ (Negative); Color Urine Yellow (Yellow); Glucose Urine UA Negative (Negative); Ketones Urine Negative (Negative); Leukocyte Esterase Ur Negative LEU/UL (Negative); Nitrate Urine Negative (Negative); Non Pathogenic Casts 0-2; Protein Urine Negative (Negative); RBC Urine >100 /hpf (0-2); Specific Grav Ur 1.008 (1.001-1.035); Squamous Epithelial Cell Urine None seen /hpf (Few); Urobilinogen Urine 0.2 mg/dL (<2.0); WBC Urine 0-5 /hpf
[2023-06-03 12:51] LABS: Add Urine Microscopic? YES
[2023-06-03] MEDS: TRANEXAMIC ACID 650 MG TABLET 2 EACH PO (13:01)
== END 2023-06-03 13:05 | disposition home or self-care (01) ==
PROVIDERS: Emergency Medicine; Emergency Provider Physician Assistant
DX: N93.8 Other specified abnormal uterine and vaginal bleeding (principal); E03.9 Hypothyroidism, unspecified; E28.2 Polycystic ovarian syndrome; E66.9 Obesity, unspecified; Z68.27 Body mass index [BMI] 27.0-27.9, adult
CPT/HCPCS: 36415; 81001; 84702; 85025; 85461; 86850; 86900; 86901; 99284; A9270

== ENCOUNTER 2023-10-25 16:24 | Emergency (ER) | payer BC, SELFPAY ==
[2023-10-25 16:30] VITALS: BP 135/77; PULSE 76; RESP 18; TEMP 36.6; O2SAT 100
--- NOTE | 2023-10-25 17:05 | ED.SKABFB ---
HPI - Skin/Abscess/Foreign Bdy General Chief complaint: Skin/Abscess/Foreign Body Stated complaint: Rash Time Seen by Provider: 10/25/23 17:00 Source: patient and RN notes reviewed Mode of arrival: ambulatory Limitations: no limitations History of Present Illness HPI narrative: Patient presents today complaining of a pruritic and painful rash to left abdomen and left flank x4 days. She does report some pain to these areas prior to the rash appearing. Currently rates her pain 2/10 and has been taking some ibuprofen with relief. Related Data Home Medications Medication Instructions Recorded Confirmed levothyroxine 50 mcg tablet 50 mcg PO DAILY 08/05/22 10/25/23 norethindrone 1 mg-ethinyl 1 tablet PO DAILY 10/25/23 10/25/23 estradiol 20 mcg (24)-iron 75 mg (4) tablet (Aurovela 24 Fe) Allergies Allergy/AdvReac Type Severity Reaction Status Date / Time No Known Allergies Allergy Verified 10/25/23 16:51 Review of Systems Review of Systems: CONSTITUTIONAL: Denies body aches, fever, chills, or sweats. EYES: Denies visual changes, redness, or discharge. ENT: Denies rhinorrhea, congestion, sore throat, or otalgia. CARDIOVASCULAR: Denies chest pain, palpitations, or edema. RESPIRATORY: Denies cough or dyspnea. GASTROINTESTINAL: Denies abdominal pain, nausea, vomiting, or diarrhea. GENITOURINARY: Denies dysuria or hematuria. SKIN: + rash MUSCULOSKELETAL: Denies back pain, joint pain, or myalgia. NEUROLOGIC: Denies headache, numbness, tingling, or weakness. PSYCH: Denies depression or anxiety. [facility] Past Medical History Medical History Hypothyroidism Obesity PCOS (polycystic ovarian syndrome) and not yet delivered Scoliosis Family History Family History Other No pertinent family history Social History Social History Smoking status: Never smoker Second hand tobacco smoke exposure: No Substance use: never Lack of Transportation: No Lack of Food: Never True Current Housing: I Have Housing Concerned About Future Housing: No Difficulty Paying Gas/Electric Bills: No Difficulty Paying for Meds: No Currently Unemployed: No Education: Bachelor's Degree Difficulty w/ Childcare or Family Care: No Spiritual care concerns: No Comments At time of signature, I have reviewed and agree with nursing past medical, surgical, social and family history unless otherwise noted. Please see nursing chart for further information. There is no relevant family history pertinent to the presenting complaint Exam Narrative: GENERAL: Well-appearing, well-nourished, and in no acute distress. HEAD: Normocephalic, atraumatic. EYES: EOMI. No redness or drainage. Conjunctivae normal. ENT: Mucous membranes pink and moist. NECK: Normal AROM. CHEST: No respiratory distress. EXTREMITIES: Normal range of motion. No edema. SKIN: Warm, dry. Capillary refill normal. Normal skin turgor. Cluster of vesicles measuring approximately 5 x 5 cm just to the left of the umbilicus, and another cluster approximately the same size to the left flank. Subtle surrounding erythema. NEURO: No focal deficits. Alert and oriented x3. Gait steady. PSYCH: Normal affect. No signs of depression or anxiety. Course Course Level of Care: Express Care Visit Vital Signs Vital signs: Vital Signs Temperature 98 F 10/25/23 16:30 Pulse Rate 76 10/25/23 16:30 Respiratory Rate 18 10/25/23 16:30 Blood Pressure 135/77 10/25/23 16:30 Pulse Oximetry 100 10/25/23 16:30 Oxygen Delivery Room Air 10/25/23 16:30 Temperature 98 F 10/25/23 16:30 Pulse Rate 76 10/25/23 16:30 Respiratory Rate 18 10/25/23 16:30 Blood Pressure 135/77 10/25/23 16:30 Pulse Oximetry 100 10/25/23 16:30 Oxygen Delivery Room Air 0
== END 2023-10-25 17:10 | disposition home or self-care (01) ==
PROVIDERS: Emergency Provider Nurse Practitioner
DX: B02.9 Zoster without complications (principal); E03.9 Hypothyroidism, unspecified; E28.2 Polycystic ovarian syndrome; M41.9 Scoliosis, unspecified; E66.9 Obesity, unspecified; Z68.27 Body mass index [BMI] 27.0-27.9, adult
CPT/HCPCS: 99213; G0463

== ENCOUNTER 2024-05-16 11:16 | Outpatient (CLI) | payer BC, SELFPAY ==
--- NOTE | ~2024-05-16 | US_ITS ---
EXAMINATION: US OB <= 14 weeks fetus DATE: 05/16/2024 11:42 INDICATION: Gestational dating TECHNIQUE: Real-time transabdominal obstetric ultrasound. FINDINGS: No prior studies for comparison. The uterus measures 11.1 x 6.3 x 7.6 cm. There is an intrauterine gestational sac, with pole id entified. The crown rump length measures 4.6 cm, which correlates with a estimated gestational age o f 11 weeks 3 days. heart tones are identified measuring 155 BPM. No evidence for subchorionic hemorrhage IMPRESSION: 1. SL IUP with an EGA of 11 weeks, 3 days (EDC by estimated date of delivery b ultrasound of ). Reviewed, dictated and finalized at location B. IMPRESSION: 1. SL IUP with an EGA of 11 weeks, 3 days (EDC by estimated date of delivery b ultrasound of 12/02/2024).
== END 2024-05-16 11:17 | disposition home or self-care (01) ==
LOC: MICIMG 11:17
PROVIDERS: PCP Obstetrics & Gynecology Gynecology; Visit Provider Obstetrics & Gynecology Gynecology
DX: O36.80X0 Pregnancy with inconclusive fetal viability, not applicable or unspecified (principal); Z3A.00 Weeks of gestation of pregnancy not specified
CPT/HCPCS: 76801

== ENCOUNTER 2024-12-06 13:32 | Inpatient (IN) | payer BC, SELFPAY ==
[2024-12-06] VITALS (70 sets, daily range): BP systolic 84–137; BP diastolic 53–82; PULSE 65–106; TEMP 36.1–37.1; O2SAT 79–98; BMI 35.2
--- NOTE | 2024-12-06 14:09 | LDADM ---
This patient, Leida lE, was admitted to Labor/Delivery/Recovery 104 on 12/06/24 at 13:32. Plans for labor, pain management and were discussed with patient. Patient/family oriented to hospital policies and general routines including ID bracelet, bed and alarms, visiting hours, pain management, procedures, bathroom and other care routines, personal items, smoking policy, room service/diet and guest tray routines, security routines, and visiting hours. Patient/Family are encouraged to report perceived risks to care and to ask questions if they do not understand what they are told or what they should do. See OBIX for further documentation.
[2024-12-06 14:26] LABS: Basophils Absolute Auto 0.1 K/mm3 (0.0-0.1); Basophils Percent Auto 0.5 % (0.2-1.2); Eosinophils Absolute Auto 0.1 K/mm3 (0-0.3); Eosinophils Percent Auto 0.7 % (0-4.4); Hematocrit 36.5 % (37.0-47.0); Hemoglobin 12.1 g/dL (12.0-15.0); Immature Granulocyte Absolute 0.13 K/mm3 (0.00-0.031); Immature Granulocyte Percent A 1.3 % (0-0.5); Lymphocytes Absolute Auto 2.59 K/mm3 (0.9-3.2); Lymphocytes Percent Auto 25.3 % (18.3-44.2); Mean Corpuscular HGB Conc 33.2 g/dl (32-36); Mean Corpuscular Hemoglobin 31.8 pg (26-34); Mean Corpuscular Volume 95.8 fl (80-100); Mean Platelet Volume 9.5 fl (7.4-10.4); Monocytes Absolute Auto 0.7 K/mm3 (0.1-0.6); Monocytes Percent Auto 6.3 % (2.6-8.5); Neutrophils Absolute Auto 6.8 K/mm3 (1.3-6.7); Neutrophils Percent Auto 65.9 % (45.5-73.1); Platelet Count Result 223 k/mm3 (150-375); Red Blood Count 3.81 M/mm3 (4.2-5.4); White Blood Count 10.3 K/mm3 (4.5-10.0)
[2024-12-06] MEDS: miSOPROStol 25 MCG TABLET 50 MCG BUCCAL (14:43)
--- OUTSIDE RECORDS SUMMARY | 2024-12-06 15:21 | XMS_ITS | Referral Summary ---
Author Organization [facility] Address [address] [place] [address] Care Team Providers Care Culinary Instructor Name Role Phone No, Physician Primary Care Provider [phone] Encounters Date Type Department Care Team Description [facility] [facility] (Third Floor) [place] [address] Shannan Dickinson RN [place] Employee Screening from Last 3 Months Allergies No known active allergies Medications No known medications Active Problems No known active problems Social History Tobacco Use Types Packs/Day Years Used Date Smoking Tobacco: Never Assessed Comments Unknown Sex and Gender Information Value Date Recorded Sex Assigned at Not on file Legal Sex Female 1:03 PM CDT Gender Identity Not on file Sexual Orientation Not on file Last Filed Vital Signs Vital Sign Reading Time Taken Comments Blood Pressure 120/60 08/03/2024 3:03 PM VESSEL TRAFFIC OFFICER Pulse 111 08/03/2024 3:03 PM VESSEL TRAFFIC OFFICER Temperature 36.9 C (98.4 F) 08/03/2024 3:03 PM VESSEL TRAFFIC OFFICER Respiratory Rate 22 08/03/2024 3:03 PM VESSEL TRAFFIC OFFICER Oxygen Saturation 99% 08/03/2024 3:03 PM VESSEL TRAFFIC OFFICER Inhaled Oxygen Concentration - - Weight 81.2 kg (179 lb) 08/03/2024 3:03 PM VESSEL TRAFFIC OFFICER Height 162.6 cm (5' 4 ) 08/03/2024 3:03 PM VESSEL TRAFFIC OFFICER Body Mass Index 30.73 08/03/2024 3:03 PM VESSEL TRAFFIC OFFICER Plan of Treatment Not on file Insurance [employer] OOS Care Teams Culinary Instructor Relationship Specialty Start Date End Date No, Physician PCP - General 10/25/20
--- OUTSIDE RECORDS SUMMARY | 2024-12-06 15:21 | XMS_ITS | Clinical Summary ---
Author Organization [facility] Address [address] [place] [address] Care Team Providers Care Cylinder Honer Name Role Phone Unavailable Primary Care Provider Unavailabl e Source Comments [facility],non-owned Affiliates and Associated Physician Practices is amultiple site organization consisting of ambulatory clinics and hospital sitesin [place], [place], [place] and [place]. This disclosure is being madepursuant to the Care Everywhere program and may not contain all information available regarding this patient. Last updated 18.[facility] Allergies No known active allergies Medications * Be aware that medications may not be up to date on this document. Alwaysverify current medications with the patient. Vit-Fe Fumarate-FA ( vitamin) 28-0.8 MG tablet Take 1 (one) tablet by mouth once daily Active Encounters Date Type Department Care Team Description 09/20/2024 1:00 PM BUNK ASSEMBLER Hospital Encounter [facility] Pediatrics - Cardiology [address] [place] [phone] aNncy Manuel MD Discharge Disposition: Home or Self Care 09/20/2024 1:00 PM BUNK ASSEMBLER Hospital Encounter [facility] Pediatrics - Cardiology [address] [place] [phone] Catherine Benjamin MD Discharge Disposition: Home or Self Care from Last 3 Months Social History Tobacco Use Types Packs/Day Years Used Date Smoking Tobacco: Never Assessed Estimated Date of Delivery Comme nts Yes 12/02/2024 Based on Ultraso und Sex and Gender Information Value Date Recorded Sex Assigned at Not on file Legal Sex Female 3:33 PM CDT Gender Identity Not on file Sexual Orientation Not on file Plan of Treatment Health Maintenance Due Date Last Done Comments PAP SMEAR 1989 HEPATITIS C SCREENING 06/14/2007 DTAP/TDAP/TD VACCINES (1 - Tdap) 2008 HEPATITIS B VACCINE (1 of 3 - 19+ 3-dose series) 2008 COVID-19 VACCINE (5 - season) 2024 06/23/2022, 08/05/2021, 09/10/2020, Additional history exists DEPRESSION SCREENING 08/16/2024 OB-ONE HOUR GLUCOSE 08/26/2024 OB-TDAP CURRENT 09/02/2024 OB-RHOGAM INJECTION 09/09/2024 OB-GROUP B STREP SCREEN 10/28/2024 ZOSTER VACCINE (1 of 2) 2039 INFLUENZA VACCINE Completed 05/31/2024, , 05/20/2022, Additional history exists HIV SCREENING Completed 09/13/2024 HIB VACCINE Aged Out No longer eligi ble based on patient's age to complete this topic HPV VACCINE Aged Out No longer eligi ble based on patient's age to complete this topic MENINGOCOCCAL (Group B) VACCINE SHARED DECISION-MAKING Aged Out No longer eligible based on patient's age to complete this topic MENINGOCOCCAL GROUPS A/C/Y/W VACCINE Aged Out No longer eligible based on patient's age to complete this topic PNEUMOCOCCAL VACCINE Aged Out No long er eligible based on patient's age to complete this topic Respiratory Syncytial Virus (RSV) Vaccine Pt: or over 60 yrs (No Doses Required) Completed Procedures Procedure Name Priority Date/Time Associated Diagnosis Comments ECHO COMPLETE CG Routine 09/20/2024 1:33 PM BUNK ASSEMBLER In vitro fertilization from Last 3 Months Results * ECHO COMPLETE CG (09/20/2024 1:33 PM BUNK ASSEMBLER) MV E pk jadyn 31.83 cm/s [facility] CV F UJI PACS MV A pk jadyn 44.33 cm/s [facility] CV F UJI PACS Anatomical Region Laterality Modality Ultrasound 09/20/2024 1:21 PM BUNK ASSEMBLER Narrative 09/20/2024 3:51 PM BUNK ASSEMBLER Name: Leida El Patient Exam Info Gender: Female Patient Status: O/P : 1990 Admit Date: 09/20/2024 Exam Date/Time: 09/20/2024 1:21 PM Site: [facility] Current Location: [facility] EStaffOrdering Provider: Catherine Benjamin Interpreting Physician: Nancy Manuel MD Foam Machine Operator: Yazmin Armstrong [facility] - Study Info Procedure: ECHO COMPLETE CG Indications: Z31.83 - In vitro fertilization Maternal Gestational Status GA by EDC: 29 wks , 4 days EDC: 12/02/2024 Type: Russell Age: 34 yrs Lie: Vertex Summary * The echocardiogram was within normal limits. * Small atrial and ventricular septal defects and persistent ductus arteriosus cannot be excluded as findings. Anatomic Relationships Left sided cardiac apex (levocardia). There is normal visceral-cardiac situs, and normal segmental cardiac anatomical relationship. Systemic Veins There is normal systemic venous return. Pulmonary Veins The visualized pulmonary veins drain normally to the left atrium. Right Atrium The right atrial size is normal. Left Atrium The left atrial size is normal. Atrial Septum Patent foramen ovale with open foramen flap. Color flow is right to left. Right Ventricle The right ventricular cavity size is normal. The right ventricular wall thickness is normal. The right ventricular systolic function is normal. RV Outflow Tract The right ventricular outflow tract is normal. Left Ventricle The left ventricular cavity size is normal. The left ventricular wall thickness is normal. The left ventricular systolic function is normal. Ventricular Septum There is no ventricular septal defect with no shunting. LV Outflow Tract The left ventricular outflow tract is normal. Tricuspid Valve The tricuspid valve is structurally normal. The tricuspid inflow pattern is normal. Tricuspid velocity is within the normal range. There is no tricuspid regurgitation. Mitral Valve The mitral valve is structurally normal. The mitral inflow pattern is normal. Mitral velocity is within the normal range. There is no mitral regurgitation. Aorta aortic arch visualized and is without obstruction by 2D, color flow and Doppler. Pulmonary Arteries The main pulmonary artery is normal, with confluent branch pulmonary arteries. Ductus Arteriosus The antegrade flow velocity and pattern in the ductal arch is normal. A normal ductus arteriosus is appreciated. Doppler Flow in the ductus venosus is normal. The umbilical vein flow pattern is normal. The umbilical artery flow pattern is normal. Hydrops Assessment No pericardial effusion. No ascites present. No pleural effusion(s). Rhythm The rhythm is normal. There is 1:1 AV conduction. Pulmonary Valve The pulmonic valve is normal-sized. The transpulmonic velocity is within normal range. There is no pulmonic regurgitation. Aortic Valve The aortic valve is normal-sized. The transaortic velocity is within normal range. There is no aortic regurgitation. Doppler Measurements (Fetus A) Atrioventricular Valves Name Value Normal Z-Score Percentile Atrioventricular Valves Doppler TV E Peak Velocity 0.4 m/s TV A Peak Velocity 0.5 m/s MV E Peak Velocity 0.3 m/s MV A Peak Velocity 0.4 m/s (Fetus A) Semilunar Valves Name Value Normal Z-Score Percentile Semilunar Valves Doppler PV Peak Velocity. 0.7 m/s AV Peak Velocity () 1.0 m/s (Fetus A) Heart Rate Name Value Normal Z-Score Percentile Heart Rate HR 123 bpm Report Signatures Finalized by Nancy Manuel MD on 09/20/2024 03:51 PM Procedure Note Nancy Manuel MD - 09/20/2024 Name: Leida El Patient Exam Info Gender: Female Patient Status: O/P : 1990 Admit Date: 09/20/2024 Exam Date/Time: 09/20/2024 1:21 PM Site: [facility] Current Location: [facility] EStaffOrdering Provider: Catherine Benjamin Interpreting Physician: Nancy Manuel MD Foam Machine Operator: Yazmin Armstrong [facility] - Study Info Procedure: ECHO COMPLETE CG Indications: Z31.83 - In vitro fertilization Maternal Gestational Status GA by EDC: 29 wks , 4 days EDC: 12/02/2024 Type: Russell Age: 34 yrs Lie: Vertex Summary * The echocardiogram was within normal limits. * Small atrial and ventricular septal defects and persistent ductus arteriosus cannot be excluded as findings. Anatomic Relationships Left sided cardiac apex (levocardia). There is normal visceral-cardiac situs, and normal segmental cardiac anatomical relationship. Systemic Veins There is normal systemic venous return. Pulmonary Veins The visualized pulmonary veins drain normally to the left atrium. Right Atrium The right atrial size is normal. Left Atrium The left atrial size is normal. Atrial Septum Patent foramen ovale with open foramen flap. Color flow is right toleft. Right Ventricle The right ventricular cavity size is normal. The right ventricularwall thickness is normal. The right ventricular systolic function is normal. RV Outflow Tract The right ventricular outflow tract is normal. Left Ventricle The left ventricular cavity size is normal. The left ventricular wall thickness is normal. The left ventricular systolic function is normal. Ventricular Septum There is no ventricular septal defect with no shunting. LV Outflow Tract The left ventricular outflow tract is normal. Tricuspid Valve The tricuspid valve is structurally normal. The tricuspid inflow patternis normal. Tricuspid velocity is within the normal range. There is notricuspid regurgitation. Mitral Valve The mitral valve is structurally normal. The mitral inflow pattern is normal. Mitral velocity is within the normal range. There is no mitral regurgitation. Aorta aortic arch visualized and is without obstruction by 2D, colorflow and Doppler. Pulmonary Arteries The main pulmonary artery is normal, with confluent branch pulmonary arteries. Ductus Arteriosus The antegrade flow velocity and pattern in the ductal arch is normal.A normal ductus arteriosus is appreciated. Doppler Flow in the ductus venosus is normal. The umbilical vein flow patternis normal. The umbilical artery flow pattern is normal. Hydrops Assessment No pericardial effusion. No ascites present. No pleural effusion(s). Rhythm The rhythm is normal. There is 1:1 AV conduction. Pulmonary Valve The pulmonic valve is normal-sized. The transpulmonic velocity iswithin normal range. There is no pulmonic regurgitation. Aortic Valve The aortic valve is normal-sized. The transaortic velocity is withinnormal range. There is no aortic regurgitation. Doppler Measurements (Fetus A) Atrioventricular Valves Name Value Normal Z-ScorePercentile Atrioventricular Valves Doppler TV E Peak Velocity 0.4 m/s TV A Peak Velocity 0.5 m/s MV E Peak Velocity 0.3 m/s MV A Peak Velocity 0.4 m/s (Fetus A) Semilunar Valves Name Value Normal Z-ScorePercentile Semilunar Valves Doppler PV Peak Velocity. 0.7 m/s AV Peak Velocity () 1.0 m/s (Fetus A) Heart Rate Name Value Normal Z-ScorePercentile Heart Rate HR 123 bpm Report Signatures Finalized by Nancy Manuel MD on 09/20/2024 03:51 PM us Catherine Benjamin MD ECHO CUPID Final Resul t from Last 3 Months Insurance [employer]
--- OUTSIDE RECORDS SUMMARY | 2024-12-06 15:21 | XMS_ITS | Encounter Summary ---
Author Organization [facility] Address [address] [place] [address] Care Team Providers Care Ingredient Scaler Name Role Phone Unavailable Primary Care Provider Unavailabl e Encounter Details Date Type Department Care Team (Late st Contact Info) Description 01/26/2022 Lab Requisition [facility] DermPath Lab [address] [place] [address] Yon Mijares MD [address] [place] [address] Social History Tobacco Use Types Packs/Day Years Used Date Smoking Tobacco: Never Assessed Comments Unknown Sex and Gender Information Value Date Recorded Sex Assigned at Not on file Legal Sex Female 3:33 PM CDT Gender Identity Not on file Sexual Orientation Not on file documented as of this encounter Plan of Treatment Not on file documented as of this encounter Procedures Procedure Name Priority Date/Time Associated Diagnosis Comments DERMATOPATHOLOGY Routine 01/23/2022 12:0 0 AM CDT documented in this encounter Results * DERMATOPATHOLOGY (01/23/2022 12:00 AM CDT) Case Report Dermatopathology Report Case: [id number] Authorizing Provider: Yon Mijares MD Collected: 01/23/2022 12:00 AM Ordering Location: [facility] DermPath Lab Received: 01/26/2022 03:47 PM Pathologist: Milagro Lopez MD Specimen: Skin, right post thigh 4:19 PM CDT DERMATOPATHOLOGY LABORATORY Final Diagnosis Specimen A. SKIN, right post thigh: INTRADERMAL MELANOCYTIC NEVUS (D22.71) 2 4:19 PM CDT DERMATOPATHOLOGY LABORATORY Clinical History Irrit nevus vs other. Path # [id number]. 2 4:19 PM CDT DERMATOPATHOLOGY LABORATORY Gross Description Specimen A: Received is one formalin filled container labeled with the patient's name and designated right post thigh. The specimen consists of a shave biopsy measuring [id number]. Jar 0. 2 4:19 PM CDT DERMATOPATHOLOGY LABORATORY Microscopic Description Specimen A. SKIN, right post thigh: There are nests of cytologically bland melanocytes within the dermis that mature with depth. 2 4:19 PM CDT DERMATOPATHOLOGY LABORATORY Disclaimer An external and internal positive and negative controls are appropriate for the histochemical, immunohistochemical and immunofluorescence stain(s) in this case (if any), except where stated explicitly. The performance characteristics of the stain(s) cited in this report were developed and its performance characteristic determined by the Dermatopathology Laboratory at [facility], directed by Dr. Bernie Berumen. These tests need not be, and therefore are not, approved by the [place] Food and Drug Administration. The tests are used for clinical purposes. Billing Codes Specimen Charges Stain Charges 86463 1 2 4:19 PM CDT DERMATOPATHOLOGY LABORATORY Embedded Images 2 4:19 PM CDT DERMATOPATHOLOGY LABORATORY Pathology/Cytolog y TISSUE SPECIMEN FROM SKIN / Unknown 01/23/2022 01/26/2022 3:47 PM CDT us Yon Mijares MD LAB - PATHOLOGY/CYTOLOGY ORDER NEHA Final Result DERMATOPATHOLOGY LABORATORY [facility] - Department of Dermatology [address] [place] [address], [facility] [phone] documented in this encounter Visit Diagnoses Not on filedocumented in this encounter
--- OUTSIDE RECORDS SUMMARY | 2024-12-06 15:21 | XMS_ITS | Clinical Summary ---
Author Organization [facility] Address [address] [place] [address] Care Team Providers Care Employee Representative Name Role Phone No, Physician Primary Care Provider [phone] Allergies No known active allergies Medications No known medications Active Problems No known active problems Encounters Date Type Department Care Team Description 09/18/2024 [facility]phone [facility] [address] [place] [address] Room [address] (Third Floor) [place] [address] Shannan Dickinson RN [place] Employee Screening from Last 3 Months Social History Tobacco Use Types Packs/Day Years Used Date Smoking Tobacco: Never Assessed Comments Unknown Sex and Gender Information Value Date Recorded Sex Assigned at Not on file Legal Sex Female 1:03 PM CDT Gender Identity Not on file Sexual Orientation Not on file Obstetrics History Last Filed Vital Signs Vital Sign Reading Time Taken Comments Blood Pressure 120/60 08/03/2024 3:03 PM CLOUD INFRASTRUCTURE ARCHITECT Pulse 111 08/03/2024 3:03 PM CLOUD INFRASTRUCTURE ARCHITECT Temperature 36.9 C (98.4 F) 08/03/2024 3:03 PM CLOUD INFRASTRUCTURE ARCHITECT Respiratory Rate 22 08/03/2024 3:03 PM CLOUD INFRASTRUCTURE ARCHITECT Oxygen Saturation 99% 08/03/2024 3:03 PM CLOUD INFRASTRUCTURE ARCHITECT Inhaled Oxygen Concentration - - Weight 81.2 kg (179 lb) 08/03/2024 3:03 PM CLOUD INFRASTRUCTURE ARCHITECT Height 162.6 cm (5' 4 ) 08/03/2024 3:03 PM CLOUD INFRASTRUCTURE ARCHITECT Body Mass Index 30.73 08/03/2024 3:03 PM CLOUD INFRASTRUCTURE ARCHITECT Plan of Treatment Health Maintenance Due Date Last Done Comments Cervical Cancer Screening 1989 Depression Screening 1989 Hepatitis C Screening 1989 DTaP/Tdap/Td Vaccine (1 - Tdap) 2000 Varicella Vaccines (1 of 2 - 13+ 2-dose series) 2002 Hepatitis B Screening 2007 Regular Well Visit/Exam 18-64 2007 Influenza Vaccine (#1) 2024 HPV Vaccines Aged Out No longer eligi ble based on patient's age to complete this topic Pneumococcal vaccine <65 Aged Out No longer eligible based on patient's age to complete this topic Insurance [employer] OOS Care Teams Employee Representative Relationship Specialty Start Date End Date No, Physician PCP - General 10/25/20
--- OUTSIDE RECORDS SUMMARY | 2024-12-06 15:21 | XMS_ITS | Clinical Summary ---
Author Organization [facility] Address [address] [place] [phone] Phone Care Team Providers Care Business Development Analyst Name Role Phone Unavailable Primary Care Provider Unavailabl e Social History Tobacco Use Types Packs/Day Years Used Date Smoking Tobacco: Never Assessed Comments Unknown Sex and Gender Information Value Date Recorded Sex Assigned at Not on file Legal Sex Female 2:58 PM CDT Gender Identity Not on file Sexual Orientation Not on file Plan of Treatment Health Maintenance Due Date Last Done Comments DTAP/TDAP/TD VACCINES (1 - Tdap) 2008 HEPATITIS B VACCINES (1 of 3 - 19+ 3-dose series) 2008 HPV/Cotest (21-29) 2010 PAP SMEAR 2010 CERVICAL CANCER SCREENING 2019 HPV/Cotest (30-65) 2019 PAP SMEAR 2019 INFLUENZA VACCINE (#1) 2024 HPV VACCINES Aged Out No longer eligi ble based on patient's age to complete this topic Insurance [employer] BLUE PREFERRED
[2024-12-06 15:39] LABS: Syphilis IgG/IgM Antibody Negative (Negative)
[2024-12-06 15:52] LABS: HIV 1/2 Ab P24 Ag Result Negative (Negative)
--- NOTE | 2024-12-06 18:42 | WPDOBADMIT ---
Obstetrics - Admit Note Admission Note: record reviewed. No pertinent additions to the history and/or any subsequent changes in the physical findings that are not consistent with the expected course of the were found. Additions to the history and/or subsequent changes in the physical findings follow. Admit for IOL, SVE 1.5/60/-2 soft/mid position, AROM large clear fluid, anticipate vaginal delivery
[2024-12-06] MEDS: LACTATED RINGERS 500 ML 999 ML IV CONT (20:05)
--- NOTE | 2024-12-06 20:44 | P.PNAN_ITS ---
Anes - Eval Pre Procedure Procedure: Labor epidural Date/Time: 12/06/24 20:44 Surgeon: Luiza Preop Diagnosis: Abdominal pain with contractions Pre Op Diagnosis: IOL Patient Data Age: 34 Gender: F Height: 1.63 m Weight: 93 kg Last Vital Signs Temp 98.7 F 12/06/24 17:00 Pulse 86 12/06/24 20:31 BP 109/66 12/06/24 20:31 Pulse Ox 98 12/06/24 13:53 O2 Del Method Room Air 12/06/24 14:07 Allergies Allergy/AdvReac Type Severity Reaction Status Date / Time No Known Allergies Allergy Verified 10/25/23 16:51 Home Medications ?Medication ?Instructions ?Recorded ?Confirmed ?Type levothyroxine 50 mcg tablet 50 mcg PO DAILY 08/05/22 12/06/24 History norethindrone 1 mg-ethinyl 1 tablet PO DAILY 10/25/23 11/01/24 History estradiol 20 mcg (24)-iron 75 mg (4) tablet (Aurovela 24 Fe) Laboratory Tests 12/06/24 13:52 WBC 10.3 H K/mm3 (4.5-10.0) RBC 3.81 L M/mm3 (4.2-5.4) Hgb 12.1 g/dL (12.0-15.0) Hct 36.5 L % (37.0-47.0) MCV 95.8 fl (80-100) MCH 31.8 pg (26-34) MCHC 33.2 g/dl (32-36) RDW 15.0 H % (11.5-14.5) Plt Count 223 k/mm3 (150-375) MPV 9.5 fl (7.4-10.4) Immature Gran % (Auto) 1.3 H % (0-0.5) Neut % (Auto) 65.9 % (45.5-73.1) Lymph % (Auto) 25.3 % (18.3-44.2) Atkinson % (Auto) 6.3 % (2.6-8.5) Eos % (Auto) 0.7 % (0-4.4) Baso % (Auto) 0.5 % (0.2-1.2) Lymph # (Auto) 2.59 K/mm3 (0.9-3.2) Atkinson # (Auto) 0.7 H K/mm3 (0.1-0.6) Eos # (Auto) 0.1 K/mm3 (0-0.3) Baso # (Auto) 0.1 K/mm3 (0.0-0.1) Abs Immat Gran (auto) 0.13 H K/mm3 (0.00-0.031) Absolute Neuts (auto) 6.8 H K/mm3 (1.3-6.7) Absolute Nucleated RBC 0.000 K/mm3 (0.0-0.012) Nucleated RBC % 0.0 % (0.0-0.2) Syphilis IgG/IgM Ab Negative (Negative) HIV 1&2 Ab/P24 Ag 4thGn Negative (Negative) Blood Type O Positive Antibody Screen Negative : gestational age HCG: positive Patient hx anesthesia problems: none Family hx anesthesia problems: none Results Review: All pre-operative results and documents have been reviewed as part of the pre- operative evaluation. [facility] Past Medical History Medical History Scoliosis Obesity and not yet delivered Hypothyroidism PCOS (polycystic ovarian syndrome) Family History Family History (Reviewed 10/25/23 @ 17:06 by Kimberlee Glass, [facility], ) Other No pertinent family history Social History Social History Smoking status: Never smoker Second hand tobacco smoke exposure: No Substance use: never Do You Feel Safe in your Home?: Yes Lack of Transportation: YES Lack of Food: Never True Current Housing: I Have Housing Concerned About Future Housing: No Difficulty Paying Gas/Electric Bills: No Difficulty Paying for Meds: No Currently Unemployed: No Education: Bachelor's Degree Difficulty w/ Childcare or Family Care: No Spiritual care concerns: No Exam Day of Procedure 12/06/24 20:44 Patient weight: obese
[2024-12-06] MEDS: fentaNYL CITRATE INJ (*CRX) 100 MCG/2 ML VIAL IV PUSH (20:51)
[2024-12-06] MEDS: OXYTOCIN 30 UNITS/NS 500 ML 30 UNITS/500 ML BAG IV CONT (22:41)
[2024-12-07] VITALS (129 sets, daily range): BP systolic 98–149; BP diastolic 48–107; PULSE 50–208; RESP 14–16; TEMP 36.4–37.6; O2SAT 83–100
[2024-12-07] MEDS: FAMOTIDINE 20 MG/2 ML VIAL IV PUSH (01:49)
[2024-12-07] MEDS: diphenhydrAMINE HCl INJ 50 MG/ML VIAL IV PUSH (02:21)
[2024-12-07] MEDS: OXYTOCIN 30 UNITS/NS 500 ML 30 UNITS/500 ML BAG 999 UNITS IV CONT (05:04)
[2024-12-07] MEDS: fentaNYL CITRATE INJ (*CRX) 100 MCG/2 ML VIAL IV PUSH (05:08)
[2024-12-07] MEDS: miSOPROStol 200 MCG TABLET 1000 MCG RECTAL (05:21)
[2024-12-07] MEDS: TRANEXAMIC ACID 1,000MG/ISO100 1,000 MG/100 ML BAG 600 MG IVPB (05:30)
[2024-12-07] MEDS: METHYLERGONOVINE MALEATE 0.2 MG/ML VIAL (05:30)
[2024-12-07 05:35] LABS: Basophils Absolute Auto 0.1 K/mm3 (0.0-0.1); Basophils Percent Auto 0.4 % (0.2-1.2); Eosinophils Percent Auto 0.1 % (0-4.4); Hematocrit 35.4 % (37.0-47.0); Hemoglobin 11.6 g/dL (12.0-15.0); Immature Granulocyte Absolute 0.15 K/mm3 (0.00-0.031); Immature Granulocyte Percent A 0.9 % (0-0.5); Lymphocytes Absolute Auto 2.26 K/mm3 (0.9-3.2); Lymphocytes Percent Auto 13.5 % (18.3-44.2); Mean Corpuscular HGB Conc 32.8 g/dl (32-36); Mean Corpuscular Hemoglobin 31.5 pg (26-34); Mean Corpuscular Volume 96.2 fl (80-100); Mean Platelet Volume 9.5 fl (7.4-10.4); Neutrophils Absolute Auto 13.3 K/mm3 (1.3-6.7); Neutrophils Percent Auto 79.1 % (45.5-73.1); Platelet Count Result 192 k/mm3 (150-375); Red Blood Count 3.68 M/mm3 (4.2-5.4); Red Cell Distribution Width 14.9 % (11.5-14.5); White Blood Count 16.8 K/mm3 (4.5-10.0)
--- NOTE | 2024-12-07 05:44 | PM.OBPRVD ---
OB - Vaginal Delivery Note Procedure Delivery date: 12/07/24 Events: Other (IVF) Induction method: AROM, Per Misoprostol Protocol and Per Pitocin Protocol Delivery monitor: None and Internal Uterine Route of delivery: Episiotomy description: Right Mediolateral Delivery repair: vicryl Specimen: No Quantitative Blood Loss (ml): 2,000 Anesthesia type: Local Disposition: Floor Baby Date of : 12/07/24 Time of : 05:00 Gestational Age by Date: 40 Weight (pounds): 9 Weight (ounces): 3 presentation: vertex position: Left Occiput Anterior Placenta delivery description: Spontaneous Cord Vessel Description: 3 Vessels, Nuchal Cord (x2), Loose and Reduced score one minute: 3 score five minutes: 9 Narrative: head delivered and rotated to KEIKO, unable to deliver the anterior shoulder, coty and suprapubic pressure were not able to release the shoulder, unable to reach posterior arm, RML and unable to rotate or loosen arm, was able to grab underneath and slowly lift the arm, humerus broken and arm posterior arm delivered. baby delivered quickly. Uterus then boggy after placental delivery. fundal massage, cytotec, methergine, TXA, manual exploration of uterus, then OTTO placed and hemostasis acheived. repair complete, urinary catheter placed and bedside US done to confirm placement. Dr. hunter notified and will continue to monitor
[2024-12-07] MEDS: OXYTOCIN 30 UNITS/NS 500 ML 30 UNITS/500 ML BAG 125 UNITS IV CONT (05:45)
[2024-12-07] MEDS: ceFAZolin 2 GM/D5W 50 ML 2 GM/50 ML BAG IVPB (06:15)
[2024-12-07] MEDS: LACTATED RINGERS 1,000 ML 999 ML IV CONT (06:30)
[2024-12-07 07:10] LABS: Alanine Aminotransferase 13 U/L (6-35); Albumin Level 2.7 g/dL (3.5-5.1); Alkaline Phosphatase 160 U/L (38-126); Anion Gap 8 mmol/L (4-12); Aspartate Amino Transferase 21 U/L (14-36); Bilirubin,Total 0.5 mg/dL (0.2-1.3); Blood Urea Nitrogen 11 mg/dL (7-17); Calcium 8.1 mg/dL (8.4-10.2); Carbon Dioxide 18 mmol/L (22-30); Chloride 107 mmol/L (98-107); Estimated CRCL calculation 121 ml/min; Estimated Glomerular Filt Rate > 60; Glucose 95 mg/dL (65-110); Potassium 3.9 mmol/L (3.4-5.0); Sodium 133 mmol/L (137-145)
[2024-12-07 07:19] LABS: Partial Thromboplastin Time 28.2 Seconds (22.3-36.8)
[2024-12-07 08:39] LABS: Fibrinogen 362 mg/dl (215-510)
[2024-12-07 09:11] LABS: D Dimer 2.41 ug/mL (<0.48)
[2024-12-07] MEDS: ACETAMINOPHEN 325 MG TABLET 650 MG PO (09:42)
[2024-12-07 10:16] LABS: Hematocrit 31.6 % (37.0-47.0); Hemoglobin 10.4 g/dL (12.0-15.0); Mean Corpuscular HGB Conc 32.9 g/dl (32-36); Mean Corpuscular Hemoglobin 31.7 pg (26-34); Mean Corpuscular Volume 96.3 fl (80-100); Mean Platelet Volume 9.4 fl (7.4-10.4); Platelet Count Result 185 k/mm3 (150-375); Red Blood Count 3.28 M/mm3 (4.2-5.4); Red Cell Distribution Width 14.8 % (11.5-14.5); White Blood Count 20.4 K/mm3 (4.5-10.0)
--- NOTE | 2024-12-07 10:35 | PC.NURSE ---
Joy Colón here at bedside to remove jamey device, up, and vaginal packing. Patient tolerated well.
--- NOTE | 2024-12-07 10:40 | PM.OBPNVD ---
OB - PN: Subj Subjective Date/time seen: 12/07/24 10:40 Interval history: Dominique suction off for 30 minutes, minimal spotting on pad. deflated cuff and removed dominique without difficulty, fundus firm, urinary catheter removed. reviewed h/h OB - PN: Obj Data Labs 12/07/24 10:08 12/07/24 06:36 Labs: Laboratory Results - last 24 hr 12/06/24 12/07/24 12/07/24 13:52 05:30 06:36 WBC 10.3 H 16.8 H RBC 3.81 L 3.68 L Hgb 12.1 11.6 L Hct 36.5 L 35.4 L MCV 95.8 96.2 MCH 31.8 31.5 MCHC 33.2 32.8 RDW 15.0 H 14.9 H Plt Count 223 192 MPV 9.5 9.5 Immature Gran % (Auto) 1.3 H 0.9 H Neut % (Auto) 65.9 79.1 H Lymph % (Auto) 25.3 13.5 L [place] % (Auto) 6.3 6.0 Eos % (Auto) 0.7 0.1 Baso % (Auto) 0.5 0.4 Lymph # (Auto) 2.59 2.26 [place] # (Auto) 0.7 H 1.0 H Eos # (Auto) 0.1 0.0 Baso # (Auto) 0.1 0.1 Abs Immat Gran (auto) 0.13 H 0.15 H Absolute Neuts (auto) 6.8 H 13.3 H Absolute Nucleated RBC 0.000 0.000 Nucleated RBC % 0.0 0.0 PT 14.0 INR 1.0 APTT 28.2 Fibrinogen 362 D-Dimer 2.41 H Sodium 133 L Potassium 3.9 Chloride 107 Carbon Dioxide 18 L Anion Gap 8 BUN 11 Creatinine 0.61 L Estim Creat Clear Calc 121 Estimated GFR > 60 Glucose 95 Calcium 8.1 L Total Bilirubin 0.5 AST 21 ALT 13 Alkaline Phosphatase 160 H Total Protein 5.0 L Albumin 2.7 L Syphilis IgG/IgM Ab Negative HIV 1&2 Ab/P24 Ag 4thGn Negative Blood Type O Positive Antibody Screen Negative 12/07/24 10:08 WBC 20.4 H RBC 3.28 L Hgb 10.4 L Hct 31.6 L MCV 96.3 MCH 31.7 MCHC 32.9 RDW 14.8 H Plt Count 185 MPV 9.4 Immature Gran % (Auto) Neut % (Auto) Lymph % (Auto) [place] % (Auto) Eos % (Auto) Baso % (Auto) Lymph # (Auto) [place] # (Auto) Eos # (Auto) Baso # (Auto) Abs Immat Gran (auto) Absolute Neuts (auto) Absolute Nucleated RBC Nucleated RBC % PT INR APTT Fibrinogen D-Dimer Sodium Potassium Chloride Carbon Dioxide Anion Gap BUN Creatinine Estim Creat Clear Calc Estimated GFR Glucose Calcium Total Bilirubin AST ALT Alkaline Phosphatase Total Protein Albumin Syphilis IgG/IgM Ab HIV 1&2 Ab/P24 Ag 4thGn Blood Type Antibody Screen OB - PN A/P Time Spent With Patient Time: Total time spent is greater than 50% in coordination of care (as documented) at patient's floor/unit and/or counseling patient:
[2024-12-07] MEDS: IBUPROFEN 600 MG TABLET PO (14:47)
--- NOTE | 2024-12-07 16:30 | PC.NURSE ---
1545.Introductions were made, then consulted with patient to assess needs related to . Discussed with mother her plans to feed her infant and mom confirmed she would like to breastfeed infant when she comes up from level 2 nursery. Mom reports she brought her own pump and would like to use that for now. CLC reviewed the hospital pump equipment available to mom if she would like to use it, she verbalized understanding. is currently in level 2 nursery. Encouraged mother to express any questions or concerns she has regarding feedings. Resources provided for inpatient and outpatient services with the feeding sheet, mom/baby guide, and name/number written on the communication board. Mother voiced understanding of information and will call if there is a request for assistance. Reported to the Primary RN?
[2024-12-08 00:15] VITALS: BP 119/72; PULSE 83; RESP 18; TEMP 36.8; O2SAT 100
[2024-12-08] MEDS: IBUPROFEN 600 MG TABLET PO ×5 (00:19→23:00)
[2024-12-08] MEDS: ACETAMINOPHEN 325 MG TABLET 650 MG PO ×5 (00:19→23:00)
[2024-12-08 05:41] LABS: Hematocrit 29.3 % (37.0-47.0); Hemoglobin 9.2 g/dL (12.0-15.0)
--- NOTE | 2024-12-08 07:36 | P.PNOB_ITS ---
OB - PN: Subj Subjective Date/time seen: 12/08/24 07:36 Interval history: pp day 1 doing well denies complaints baby doing well OB - PN: Obj Data Labs 12/08/24 05:25 12/07/24 06:36 Labs: Laboratory Results - last 24 hr 12/07/24 12/07/24 12/08/24 06:36 10:08 05:25 WBC 20.4 H RBC 3.28 L Hgb 10.4 L 9.2 L Hct 31.6 L 29.3 L MCV 96.3 MCH 31.7 MCHC 32.9 RDW 14.8 H Plt Count 185 MPV 9.4 PT 14.0 INR 1.0 APTT 28.2 Fibrinogen 362 D-Dimer 2.41 H OB - PN A/P Plan day: 1 Plan: routine care Time Spent With Patient Time: Total time spent is greater than 50% in coordination of care (as documented) at patient's floor/unit and/or counseling patient: Review of Systems 2 Review of Systems: All systems reviewed & are unremarkable except as noted in HPI and below Exam 2 Const: General: cooperative, healthy appearing and comfortable Chest: Chest palpation & inspection: normal inspection of the chest Resp: Effort & Inspection: normal respiratory effort Cardio: Rate: regular rate
[2024-12-08 08:50] VITALS: BP 108/77; PULSE 76; RESP 18; TEMP 36.2; O2SAT 100
[2024-12-08] MEDS: DOCUSATE SODIUM 100 MG CAPSULE PO (09:02)
[2024-12-08] MEDS: POLYSACCHARIDE IRON COMPLEX 150 MG CAPSULE PO ×2 (09:02→17:45)
[2024-12-08] MEDS: MULTIVIT/MIN/PREN/FOL AC/IRON TABLET 1 TAB PO (09:02)
--- NOTE | 2024-12-08 09:45 | PC.NURSE ---
Introductions were made, then consulted with patient to assess needs related to . Discussed with mother her?plans to feed?her and the?experience so far. She is currently pumping and bottle feeding. Baby has a broken arm and is struggling to feed well from the bottle. Mom says she may try to latch baby to the breast sometime in the future but she isn't concerned with trying at this time. Encouraged pumping consistently for good supply and stimulation. She pumped and bottle fed with her first baby and is familiar with her own personal breast pump. Resources provided for inpatient and outpatient services with the feeding sheet, mom/baby guide and name written on the communication board. Mother voiced understanding of information and will call if there is a request for assistance. Reported to the Primary RN.
--- NOTE | 2024-12-08 14:14 | WPDANLDPN2 ---
Anes-Prog Note L&D Date/Time: 12/08/24 14:14 Comfortable throughout: labor and delivery Neuraxial method: epidural Epidural/Spinal procedure site: clean & non-tender Neuro status: Neuro function grossly intact. Cardiovascular status: normal Respiratory status: normal Airway patency: baseline Mental status: baseline Post-Op hydration status: normal Vital Signs: Last Vital Signs Temp 36.2 C L 12/08/24 08:50 Pulse 76 12/08/24 08:50 Resp 18 12/08/24 08:50 BP 108/77 12/08/24 08:50 Pulse Ox 100 12/08/24 08:50 O2 Del Method Room Air 12/06/24 14:07 Pain score (VAS): 1 I/O: Intake & Output 12/07/24 12/08/24 12/08/24 23:59 07:59 15:59 Intake Total 1 Balance 1 Post-procedural complaints: none Patient feedback: Patient satisfied with anesthetic care.
[2024-12-08 19:20] VITALS: BP 109/63; PULSE 92; RESP 18; TEMP 36.8; O2SAT 100
[2024-12-09] MEDS: POLYSACCHARIDE IRON COMPLEX 150 MG CAPSULE PO (07:34)
[2024-12-09] MEDS: MULTIVIT/MIN/PREN/FOL AC/IRON TABLET 1 TAB PO (07:34)
[2024-12-09] MEDS: DOCUSATE SODIUM 100 MG CAPSULE PO (07:35)
[2024-12-09] MEDS: IBUPROFEN 600 MG TABLET PO (07:35)
[2024-12-09 07:45] VITALS: BP 136/95; PULSE 80; RESP 19; TEMP 36.4; O2SAT 100
--- NOTE | 2024-12-09 08:24 | P.PNOB_ITS ---
OB - PN: Subj Subjective Date/time seen: 12/09/24 08:24 Interval history: pp day 2 doing well denies complaints baby doing well OB - PN: Obj Data Labs 12/08/24 05:25 12/07/24 06:36 OB - PN A/P Plan day: 2 Plan: routine care and discharge home Time Spent With Patient Time: Total time spent is greater than 50% in coordination of care (as documented) at patient's floor/unit and/or counseling patient: Review of Systems 2 Review of Systems: All systems reviewed & are unremarkable except as noted in HPI and below Exam 2 Const: General: cooperative and healthy appearing Chest: Chest palpation & inspection: normal inspection of the chest Resp: Effort & Inspection: normal respiratory effort Cardio: Rate: regular rate Back/Spine/Pelvis: Back: no CVA tenderness Skin: General skin exam: normal color Neuro: General: patient oriented x3
--- NOTE | 2024-12-09 08:26 | PM.OBDSVD ---
DS: Admitting Diagnosis Discharge Date 12/09/24 Admitting Diagnosis IOL DS: Discharge Diagnosis Discharge Diagnosis (1) (normal spontaneous vaginal delivery): Code(s): O80 - Encounter for full-term uncomplicated delivery Status: Acute OB - DS: Summary OB Procedures : None OB Procedures Intrapartum: Spontaneous Vag Delivery OB Procedures: : None Peripartum Data Episiotomy description: Right Mediolateral Time Spent with Patient Time attestation: Total time spent providing and/or coordinating discharge services: Discharge Plan Discharge Attending physician on discharge: Jeremy Jarrett Discharging Clinician: Joy Colón Patient Disposition: Home Activity: pelvic rest Diet: regular Patient Instructions: Antibiotic Form Patient Language: Martiniquais Stand Alone Forms: General Discharge Information Follow-up/Referrals: Joy Colón CNM [Primary Care Provider] - 4 Weeks Discharge Medications: Continued levothyroxine 50 mcg Tablet 50 mcg PO DAILY Discontinued Aurovela 24 Fe 1 mg-20 mcg (24)/75 mg (4) tablet 1 tablet PO DAILY Date of admission: 12/06/24 13:32 Primary Care Provider: Joy Colón Admitting Provider: Jeremy Jarrett Attending physician on admission: Jeremy Jarrett Condition: Stable
--- NOTE | 2024-12-09 09:42 | PC.NURSE ---
0840. Consulted with mother concerning needs and she shared she is currently pumping and Bottle feeding and plans to continue with that plan for another day or so, she explained her reasoning for that is bc of baby's broken arm, she doesn't want to make her infant uncomfortable. We discussed the possibility of having a hard time coming back to the breast since she hasn't been attempting at all and mom verbalized the understanding of the risks. Mom confirmed she did not want to attempt to BF at this time or before going home. We reviewed services at [facility] and how to make an outpatient appointment if needed. Mother is feeding appropriately for growth of infant and understands stimulating to eat if needed. Infant has had appropriate feedings in the last 24 hours meets the outcomes for weight, output, blood sugar and jaundice at this time. Reinforced understanding of milk production, transition of milk, signs of adequate intake, transition of stool, prevention/relief of engorgement, plugged ducts, mastitis, responsive watching for feeding cues, the different methods of stimulating infant to breastfeed 1-3 hours after the start of the last feeding, community resources, and when to call a provider using the resource of the feeding sheet along with the mom and baby guide. Mother voiced understanding of the information shared, is confident to continue effectively her infant at home, when to call for assistance, denies any additional assistance or education at this time. Reported to the Primary RN.
[2024-12-11 08:23] VITALS: BP 123/78; PULSE 77; RESP 18; TEMP 36.8; O2SAT 100
== END 2024-12-09 11:27 | disposition home or self-care (01) | DRG 807 ==
LOC: ANHLDR 13:36 → ANHOB2 12-07 08:58
PROVIDERS: Admitting Provider Obstetrics & Gynecology; PCP Advanced Practice Midwife; Visit Provider Obstetrics & Gynecology
DX: O69.81X0 Labor and delivery complicated by cord around neck, without compression, not applicable or unspecified (principal); Z37.0 Single live birth; Z3A.40 40 weeks gestation of pregnancy; O66.0 Obstructed labor due to shoulder dystocia
CPT/HCPCS: 36415; 80053; 85014; 85018; 85025; 85027; 85380; 85384; 85610; 85730; 86593; 86703; 86850; 86900; 86901; A9270; G0432; J0690; J1200; J2210; J2590; J2795; J3010; J7120